=== PATIENT | male | born 1965 | race Caucasian/White ===

== ENCOUNTER 2024-07-20 20:10 | Emergency (ER) | payer SELFPAY ==
[2024-07-20 20:15] VITALS: BP 120/92
[2024-07-20 20:42] LABS: % Basophils 0.4 % (0-2); % Eosinophils 0.1 % (0-6); % Immature Granulocytes 0.2 % (0-0.5); % Lymphocytes 26.4 % (20.5-51.1); % Neutrophils 66.9 % (42.2-75.2); Absolute Lymphocytes 2.2 10^3/uL (1.2-3.4); Absolute Monocytes 0.5 10^3/uL (0.1-0.6); Absolute Neutrophils 5.5 10^3/uL (1.4-6.5); Hematocrit 43.2 % (39.0-52.0); Hemoglobin 15.9 g/dL (13.0-18.0); Mean Corp Hgb Conc. 36.8 g/dL (33.0-37.0); Mean Corpuscular Hgb 32.6 pg (27.0-31.0); Mean Corpuscular Volume 88.7 fL (80.0-94.0); Nucleated Red Blood Cells % 0 % (-); Platelet Count 307 10^3/uL (130-400); Red Blood Cell Count 4.87 10^6/uL (4.70-6.10); Red Cell Dist. Width 13.2 % (11.5-14.5); White Blood Cell Count 8.3 10^3/uL (4.8-10.8)
[2024-07-20 20:46] LABS: Urine Albumin Trace (Neg - Trace); Urine Bilirubin Negative (Negative); Urine Character Clear (Clear); Urine Color Yellow; Urine Glucose Negative (Negative); Urine Ketone 2+ (Negative); Urine Leukocyte Negative (Negative); Urine Nitrite Negative (Negative); Urine Occult Blood Negative (Negative); Urine Specific Gravity 1.015 (<1.030); Urine Urobilinogen Negative (Neg - 1+)
[2024-07-20 20:59] LABS: ALT (SGPT) 27 U/L (0-50); AST (SGOT) 45 U/L (17-59); Albumin 5.2 g/dl (3.5-5.0); Alkaline Phosphatase 110 U/L (38-126); Blood Urea Nitrogen 8 mg/dl (9-20); Calcium 9.8 mg/dl (8.4-10.2); Carbon Dioxide 19 mmol/L (22-30); Chloride 98 mmol/L (98-107); Glucose 136 mg/dl (70-99); Sodium 134 mmol/L (135-145); Total Bilirubin 1.7 mg/dl (0.2-1.3); Total Protein 8.1 g/dl (6.3-8.2); eGFR > 60.00
[2024-07-20 21:00] LABS: Lipase 96 U/L (23-300)
[2024-07-20 21:02] VITALS: BMI 24.3
[2024-07-20] MEDS: NSS 1000 IV ×2 (21:12→23:55)
[2024-07-20] MEDS: ZOFRAN 4 MG IV (21:12)
--- NOTE | 2024-07-20 21:13 | ED.GENMED ---
History of Present Illness
<Dom Banks PA-C - Last Filed: 07/20/24 21:15>
General
Chief Complaint: Abdominal Symptoms
Source: patient
Exam Limitations: none
Time Seen by Provider: 07/20/24 20:53
History of Present Illness
History of Present Illness:
58-year-old male presents with onset of rapid heart rate shortness of breath followed by vomiting and diarrhea. He notes epigastric pain. No recent travel or surgery. No leg swelling or calf pain. Shortness of breath started before the vomiting.
No fevers. He does admit to drinking recently fifth of vodka a day. He has not had as much today.
Past History
<Dom Banks PA-C - Last Filed: 07/20/24 21:15>
Past History
ED Past Medical History: None; Negative HTN, Hypercholesterolemia, IDDM or NIDDM
ED Past Surgical History: Appendectomy
Social History
Tobacco: Former smoker
Personal:
Living: with family
Employment: Not employed
Family History
Family History: Other (Brain tumor); Negative Early CAD
Phy Exam
<Dom Banks PA-C - Last Filed: 07/20/24 21:15>
Physical Exam
Physical Exam:
General: Uncomfortable appearing male no acute respiratory distress
HEENT: Normocephalic atraumatic
Heart: Tachycardic but regular
Lungs: Clear no wheeze
Abdomen is soft nontender nondistended no guarding or rebound
Extremities: No cyanosis
Sepsis
<Dom Banks PA-C - Last Filed: 07/20/24 21:15>
Sepsis Screen
Sepsis Screen: Possible Sepsis
Date: 07/20/24
Time: 21:13
Course
<Dom Banks PA-C - Last Filed: 07/20/24 21:15>
Orders/Labs/Results
Orders:
Orders
07/20/24 20:22
IV Insert/Care/Rem.- Treatment PRN
07/20/24 20:34
Complete Blood Count/With Diff Urgent
Comprehensive Metabolic Panel Urgent
Lipase Urgent
07/20/24 20:35
Urinalysis Reflex To Culture Urgent
Date Specimen was Collected: 07/20/24
Time Specimen was Collected: 20:22
07/20/24 20:39
ECG [Electrocardiogram (*1)] Urgent
Reason for Study: Bradycardia / Tachycardia
Cardiology Consult: Unknown
EKG- Treatment ONCE
07/20/24 21:03
0.9% Sodium Chloride 1000 ml [Nss] 1,000 ml IV BOLUS
Ondansetron Injectable [Zofran] 4 mg IV NOW STA
CR Chest - 2 Views Urgent
Comment:
Reason For Exam: sob
07/20/24 21:09
Troponin I Urgent
Comment: tachycardia
07/20/24 23:43
Famotidine [Pepcid] 20 mg IV NOW STA
Lorazepam [Ativan] 1 mg IV NOW STA
07/20/24 23:51
0.9% Sodium Chloride 1000 ml [Nss] 1,000 ml IV BOLUS
Abnormal Lab Results
07/20/24 07/20/24
20:34 20:35
MCH 32.6 H pg
(27.0-31.0)
Sodium 134 L mmol/L
(135-145)
Carbon Dioxide 19 L mmol/L
(22-30)
BUN 8 L mg/dl
(9-20)
Glucose 136 H mg/dl
(70-99)
Total Bilirubin 1.7 H mg/dl
(0.2-1.3)
Albumin 5.2 H g/dl
(3.5-5.0)
Urine Ketones 2+ A
(Negative)
07/20/24 20:34
07/20/24 20:34
Vital Signs
Initial and Last Documented VS:
Initial Vital Signs
Temp Pulse Resp BP Pulse Ox
97.6 F 139 26 120/92 98
07/20/24 20:15 07/20/24 20:15 07/20/24 20:15 07/20/24 20:15 07/20/24 20:15
Last Documented Vital Signs
Temp Pulse Resp BP Pulse Ox
97.6 F 101 21 123/88 96
07/20/24 20:15 07/21/24 01:45 07/21/24 01:45 07/21/24 01:00 07/21/24 01:45
<Vick Ibarra, - Last Filed: 07/21/24 02:33>
Orders/Labs/Results
Orders:
Orders
07/20/24 20:22
IV Insert/Care/Rem.- Treatment PRN
07/20/24 20:34
Complete Blood Count/With Diff Urgent
Comprehensive Metabolic Panel Urgent
Lipase Urgent
07/20/24 20:35
Urinalysis Reflex To Culture Urgent
Date Specimen was Collected: 07/20/24
Time Specimen was Collected: 20:22
07/20/24 20:39
ECG [Electrocardiogram (*1)] Urgent
Reason for Study: Bradycardia / Tachycardia
Cardiology Consult: Unknown
EKG- Treatment ONCE
07/20/24 21:03
0.9% Sodium Chloride 1000 ml [Nss] 1,000 ml IV BOLUS
Ondansetron Injectable [Zofran] 4 mg IV NOW STA
CR Chest - 2 Views Urgent
Comment:
Reason For Exam: sob
07/20/24 21:09
Troponin I Urgent
Comment: tachycardia
07/20/24 23:43
Famotidine [Pepcid] 20 mg IV NOW STA
Lorazepam [Ativan] 1 mg IV NOW STA
07/20/24 23:51
0.9% Sodium Chloride 1000 ml [Nss] 1,000 ml IV BOLUS
Abnormal Lab Results
07/20/24 07/20/24
20:34 20:35
MCH 32.6 H pg
(27.0-31.0)
Sodium 134 L mmol/L
(135-145)
Carbon Dioxide 19 L mmol/L
(22-30)
BUN 8 L mg/dl
(9-20)
Glucose 136 H mg/dl
(70-99)
Total Bilirubin 1.7 H mg/dl
(0.2-1.3)
Albumin 5.2 H g/dl
(3.5-5.0)
Urine Ketones 2+ A
(Negative)
07/20/24 20:34
07/20/24 20:34
Vital Signs
Initial and Last Documented VS:
Initial Vital Signs
Temp Pulse Resp BP Pulse Ox
97.6 F 139 26 120/92 98
07/20/24 20:15 07/20/24 20:15 07/20/24 20:15 07/20/24 20:15 07/20/24 20:15
Last Documented Vital Signs
Temp Pulse Resp BP Pulse Ox
97.6 F 101 21 123/88 96
07/20/24 20:15 07/21/24 01:45 07/21/24 01:45 07/21/24 01:00 07/21/24 01:45
Tashalt;Dom Banks PA-C - Last Filed: 07/20/24 21:15>
MDM/Problems Addressed
Differential Diagnosis Includes:
Shortness of breath with vomiting and diarrhea. Question electrolyte abnormality. He also has epigastric pain but is nontender to exam. Gastritis versus pancreatitis
Also consider alcohol withdrawal given tachycardia and recent alcohol use. No PE risk factors.
Labs ordered including troponin lipase. Chest x-ray pending fluids and Zofran ordered
ED Attending Note
<Dom Banks PA-C - Last Filed: 07/20/24 21:15>
-
Portions of this chart may have been created with voice recognition software.� Occasional wrong word or��sound alike� substitutions may have occurred due to the inherent limitations of voice recognition software.
<Vick Ibarra DO - Last Filed: 07/21/24 02:33>
ED Attending Note
Patient seen and examined by attending physician: Yes
I performed the substantive portion of visit, reviewed & personally made and approve the management plan that is documented in note by myself or ROMEL.: Yes
ED Attending Note:
History as above. On reevaluation the patient feels much better. States he had vomiting and diarrhea and now feels much improved after IV fluids. Labs grossly unremarkable. Heart rate much improved. Okay for discharge and outpatient follow-up
Discharge Plan
Departure
Patient Disposition: Home (Routine Discharge)
Date of Disposition: 07/21/24
Time of Disposition: 01:54
Patient with high blood pressure during this ER visit?: No
Discharge Problem:
Vomiting, Diarrhea
Instructions: Diarrhea in teens and adults, Clear Liquid Diet, Nausea and Vomiting, Adult (DC)
Prescriptions:
No Action
ibuprofen 200 mg Capsule
800 mg PO Q6H PRN (Reason: groin pain)
acetaminophen [Tylenol Extra Strength] 500 mg tablet
1,000 mg PO Q6HPRN PRN (Reason: mild pain) Qty: 1 0RF
polyethylene glycol 3350 [Miralax] 17 gram/dose powder
4 g PO DAILY PRN (Reason: Constipation) Qty: 119 0RF
Rx Instructions:
start a laxative such as MIRALAX on day 2 after surgery if no bowel movement yet as long as no nausea/vomiting and passing gas
oxycodone 5 mg tablet
5 mg PO Q4HPRN PRN (Reason: breakthrough/severe pain) Qty: 15 0RF
Referrals:
Sandro Howard, [Family Provider] -
Activity Restrictions/Additional Instructions:
Please drink plenty fluids and see your doctor in follow-up in next 3 to 5 days for any symptoms persist. Advance diet slowly as discussed. Return immediately for abdominal pain, fevers, intractable vomiting, blood in stool or any other concerns
Interventions
Interventions:
*Risk Screen - Suicide Last Done: 07/20/24 20:15
*General Assessment Last Done: 07/20/24 20:15
*Neglect/Abuse Screening Last Done: 07/20/24 20:15
ED- Fall Risk Assessment Last Done: 07/20/24 20:15
*ED COVID-19 Vaccine History Last Done: 07/20/24 20:15
*Nursing Disposition Last Done: 07/21/24 01:46
PX-Stxajm-Mebifkkdgj Assessment Last Done: 07/20/24 21:01
ED- Cardiac Assessment Last Done: 07/20/24 21:01
ED- Pulmonary Assessment Last Done: 07/20/24 21:01
Discharge Date and Time
Discharge Date/Time: 07/21/24 02:05
Print Language: GEORGIAN
[2024-07-20 21:14] VITALS: BP 125/91
[2024-07-20 21:38] LABS: Troponin I < 0.012 ng/ml
[2024-07-20] MEDS: PEPCID 20 MG IV (23:52)
[2024-07-20 23:53] VITALS: BP 117/102
[2024-07-20] MEDS: ATIVAN 1 MG IV (23:53)
[2024-07-20 23:57] VITALS: BP 131/91
[2024-07-21] VITALS: BP 142/96
[2024-07-21 01:00] VITALS: BP 123/88
== END 2024-07-21 02:05 | disposition home or self-care (01) ==
LOC: EMR 20:10
PROVIDERS: EMERGENCY PHYSICIAN Emergency Medicine; FAMILY PHYSICIAN Family Medicine
DX: R19.7 Diarrhea, unspecified (principal); R11.2 Nausea with vomiting, unspecified; R06.02 Shortness of breath; R10.13 Epigastric pain; R00.0 Tachycardia, unspecified; F10.90 Alcohol use, unspecified, uncomplicated; Z87.891 Personal history of nicotine dependence
CPT/HCPCS: 99284; 96374; 96375 ×2; 96361 ×2; 71046; 80053; 81003; 83690; 84484; 85025; 93005

== ENCOUNTER 2024-09-17 14:51 | Emergency (ER) | payer SELFPAY ==
[2024-09-17 14:54] VITALS: BP 131/97
[2024-09-17 15:52] VITALS: BP 132/97
[2024-09-17 16:00] VITALS: BP 123/99
[2024-09-17 16:02] VITALS: BMI 23.7
[2024-09-17 16:07] LABS: % Basophils 0.4 % (0-2); % Immature Granulocytes 0.5 % (0-0.5); % Lymphocytes 13.7 % (20.5-51.1); % Monocytes 5.9 % (1.7-9.3); % Neutrophils 79.5 % (42.2-75.2); Absolute Lymphocytes 1.1 10^3/uL (1.2-3.4); Absolute Monocytes 0.5 10^3/uL (0.1-0.6); Absolute Neutrophils 6.4 10^3/uL (1.4-6.5); Hematocrit 42.1 % (39.0-52.0); Hemoglobin 14.9 g/dL (13.0-18.0); Mean Corp Hgb Conc. 35.4 g/dL (33.0-37.0); Mean Corpuscular Hgb 32.9 pg (27.0-31.0); Mean Corpuscular Volume 92.9 fL (80.0-94.0); Mean Platelet Volume 9.8 fL (7.4-10.4); Nucleated Red Blood Cells % 0 % (-); Platelet Count 152 10^3/uL (130-400); Red Blood Cell Count 4.53 10^6/uL (4.70-6.10); Red Cell Dist. Width 13.9 % (11.5-14.5)
[2024-09-17 16:21] LABS: AST (SGOT) 45 U/L (17-59); Albumin 4.9 g/dl (3.5-5.0); Alkaline Phosphatase 115 U/L (38-126); Blood Urea Nitrogen 9 mg/dl (9-20); Calcium 9.3 mg/dl (8.4-10.2); Carbon Dioxide 19 mmol/L (22-30); Chloride 95 mmol/L (98-107); Estimated Creatinine Clearance 114 ml/min; Glucose 164 mg/dl (70-99); Potassium 3.4 mmol/L (3.5-5.1); Sodium 134 mmol/L (135-145); Total Bilirubin 3.6 mg/dl (0.2-1.3); Total Protein 7.7 g/dl (6.3-8.2); eGFR > 60.00
[2024-09-17 16:22] LABS: Alcohol None Detected
[2024-09-17 16:30] LABS: ALT (SGPT) 31 U/L (0-50)
[2024-09-17] MEDS: ATIVAN 2 MG IV (16:48)
[2024-09-17] MEDS: NSS 1000 IV (16:49)
[2024-09-17] MEDS: ZOFRAN 4 MG IV (16:49)
[2024-09-17 17:00] VITALS: BP 133/95
--- NOTE | 2024-09-17 18:27 | ED.GENMED ---
History of Present Illness
General
Chief Complaint: Withdrawal Symptoms
Time Seen by Provider: 09/17/24 15:53
History of Present Illness
History of Present Illness:
58-year-old male with history of alcohol abuse presenting to the emergency department for concern of alcohol withdrawal. Patient reports his last use was last evening, has been trying to detox. Notes tremulousness and nausea and vomiting. Denies
any hallucinations. Reports generalized dizziness and lightheadedness. Denies chest pain or difficulty breathing. Denies abdominal pain. Denies ever known in the past. Denies additional acute medical complaints
Past History
Past History
ED Past Medical History: None; Negative HTN, Hypercholesterolemia, IDDM or NIDDM
ED Past Surgical History: Appendectomy
Social History
Tobacco: Former smoker
Personal:
Living: with family
Employment: Not employed
Family History
Family History: Other (Brain tumor); Negative Early CAD
Phy Exam
Physical Exam
Physical Exam:
General: no clinical signs of dehydration, nontoxic and in no acute distress
HEENT: protecting airway
Neck: appears supple
CV: Normal heart rate, regular rhythm, no evidence of cyanosis
Resp: No accessory muscle use, no increased work of breathing, lungs clear to auscultation bilaterally
Abd: Soft and non-distended, no tenderness to palpation
Extremities: No deformities, no swelling, no erythema, pulses and sensation intact
Neuro: alert, no focal neurologic deficit. Mild tremulousness
: deferred
Rectal: deferred
Psych: Normal affect
Skin: Intact
Scores
Withdrawal Assessment of Alcohol
Withdrawal Assessment Completed?: Yes
Nausea and Vomiting: Intermittent nausea with dry heaves
Tactile Disturbances: None
Tremor: Moderate, with patient's arms extended
Auditory Disturbances: Not present
Paroxysmal Sweats: No sweat visible
Visual Disturbances: Not present
Anxiety: No anxiety, at ease
Headache, Fullness in Head: Not present
Agitation: Normal activity
Orientation and clouding of sensorium: Oriented and can do serial additions
Total CIWA Score: 8
Alcohol Withdrawal Medication Recommendation: Equal to MSAS Score 5-7. Lorazepam 1mg IV or PO NOW & re-assess q2hrs
Course
Orders/Labs/Results
Orders:
Orders
09/17/24 14:56
EKG [Electrocardiogram (*1)] Urgent
Reason for Study: Tachycardia
EKG- Treatment ONCE
09/17/24 16:02
Alcohol Urgent
Complete Blood Count/With Diff Urgent
Comprehensive Metabolic Panel Urgent
09/17/24 16:42
0.9% Sodium Chloride 1000 ml [Nss] 1,000 ml IV BOLUS
Lorazepam [Ativan] 2 mg IV NOW STA
Ondansetron Injectable [Zofran] 4 mg IV NOW STA
Abnormal Lab Results
09/17/24
16:02
RBC 4.53 L 10^6/uL
(4.70-6.10)
MCH 32.9 H pg
(27.0-31.0)
Absolute Lymphs (auto) 1.1 L 10^3/uL
(1.2-3.4)
Neutrophils % 79.5 H %
(42.2-75.2)
Lymphocytes % 13.7 L %
(20.5-51.1)
Sodium 134 L mmol/L
(135-145)
Potassium 3.4 L mmol/L
(3.5-5.1)
Chloride 95 L mmol/L
(98-107)
Carbon Dioxide 19 L mmol/L
(22-30)
Glucose 164 H mg/dl
(70-99)
Total Bilirubin 3.6 H mg/dl
(0.2-1.3)
09/17/24 16:02
09/17/24 16:02
Vital Signs
Initial and Last Documented VS:
Initial Vital Signs
Temp Pulse Resp BP Pulse Ox
97.5 F 155 26 131/97 98
09/17/24 14:54 09/17/24 14:54 09/17/24 14:54 09/17/24 14:54 09/17/24 14:54
Last Documented Vital Signs
Temp Pulse Resp BP Pulse Ox
97.5 F 108 12 133/95 96
09/17/24 14:54 09/17/24 17:30 09/17/24 17:30 09/17/24 17:00 09/17/24 17:45
MDM/Problems Addressed
MDM/Problems Addressed:
58-year-old male with history of alcohol abuse presenting for concern of alcohol withdrawal. Vital signs on arrival are significant for tachycardia.
On exam patient is resting comfortably, no acute distress or discomfort. He does have mild tremulousness, had an episode of vomiting upon arrival. CIWA score is 8. Do suspect mild acute withdrawal. Will screen with laboratory analysis and treat
patient therapeutically with IV fluids and Zofran as well as Ativan. Patient currently denying any hallucinations or tactile disturbances. Will consult with [facility] for detox options, however patient notes that he does not have insurance and is not
currently interested in inpatient rehab
18:20 - Labs are unremarkable. Patient reports that he is feeling better. Heart rate has improved. Feel stable for discharge. Prescription provided for gabapentin taper. Patient was given resources for outpatient follow-up. Return precautions
patient verbalized understanding
*Critical Care Note
Total Time (30-74mins, 75-104mins- exclusive of procedures): Not Applicable
ED Attending Note
-
Portions of this chart may have been created with voice recognition software.� Occasional wrong word or��sound alike� substitutions may have occurred due to the inherent limitations of voice recognition software.
Discharge Plan
Departure
Patient Disposition: Home (Routine Discharge)
Date of Disposition: 09/17/24
Time of Disposition: 18:25
Patient with high blood pressure during this ER visit?: No
Condition: Good
Discharge Problem:
Alcohol abuse with withdrawal
Instructions: Alcohol Withdrawal (DC)
Prescriptions:
New
gabapentin 300 mg capsule
300 mg PO DAILY 4 Days Qty: 10 0RF
Rx Instructions:
Day 1: 300 mg q6 hr
Day 2: 300 mg q 8hr
Day 3: 300 mg q12 hr
Day 4: 300 mg at night
No Action
ibuprofen 200 mg Capsule
800 mg PO Q6H PRN (Reason: groin pain)
acetaminophen [Tylenol Extra Strength] 500 mg tablet
1,000 mg PO Q6HPRN PRN (Reason: mild pain) Qty: 1 0RF
polyethylene glycol 3350 [Miralax] 17 gram/dose powder
4 g PO DAILY PRN (Reason: Constipation) Qty: 119 0RF
Rx Instructions:
start a laxative such as MIRALAX on day 2 after surgery if no bowel movement yet as long as no nausea/vomiting and passing gas
oxycodone 5 mg tablet
5 mg PO Q4HPRN PRN (Reason: breakthrough/severe pain) Qty: 15 0RF
Referrals:
Sanrdo Howard DO [Family Provider] -
Activity Restrictions/Additional Instructions:
You were seen in the emergency department for alcohol withdrawal
You were found to normal blood work. You were seen by credit risk specialist, given outpatient resources. You were also prescribed a gabapentin taper to help with your withdrawal symptoms
Please follow-up closely with your primary care physician.
Return to the emergency department for any worsening of your symptoms, or any development of chest pain, difficulty breathing, abdominal pain with persistent vomiting and inability to tolerate food or liquid by mouth (concern for dehydration),
weakness, headache or confusion, fever greater than 100.4, or any additional symptoms that are concerning to you.
Thank you for choosing [facility].
Interventions
Interventions:
*Risk Screen - Suicide Last Done: 09/17/24 15:57
*General Assessment Last Done: 09/17/24 15:58
*Neglect/Abuse Screening Last Done: 09/17/24 15:57
ED- Cardiac Assessment Last Done: 09/17/24 15:57
ED- Neurological Assessment Last Done: 09/17/24 15:57
ED-Psychological Assessment Last Done: 09/17/24 15:57
Discharge Date and Time
Print Language: ALBANIAN
== END 2024-09-17 18:32 | disposition home or self-care (01) ==
LOC: EMR 14:51
PROVIDERS: EMERGENCY PHYSICIAN Student in an Organized Health Care Education/Training Program; FAMILY PHYSICIAN Family Medicine
DX: F10.139 Alcohol abuse with withdrawal, unspecified (principal); R11.2 Nausea with vomiting, unspecified; Z87.891 Personal history of nicotine dependence
CPT/HCPCS: 96374; 96375; 96361; 99284; 80053; 82077; 85025; 93005

== ENCOUNTER 2024-10-30 08:02 | Inpatient (IN) | payer SELFPAY ==
[2024-10-29] VITALS (7 sets, daily range): BP systolic 122–137; BP diastolic 85–96; BMI 24.3
[2024-10-29 17:09] LABS: % Basophils 0.4 % (0-2); % Eosinophils 0.1 % (0-6); % Immature Granulocytes 0.4 % (0-0.5); % Lymphocytes 10.7 % (20.5-51.1); % Monocytes 4.7 % (1.7-9.3); % Neutrophils 83.7 % (42.2-75.2); Absolute Basophils 0.1 10^3/uL (0-0.2); Absolute Immature Granulocytes 0.1 10^3/uL (0-0.05); Absolute Lymphocytes 1.5 10^3/uL (1.2-3.4); Absolute Monocytes 0.6 10^3/uL (0.1-0.6); Absolute Neutrophils 11.5 10^3/uL (1.4-6.5); Hematocrit 40.2 % (39.0-52.0); Hemoglobin 14.6 g/dL (13.0-18.0); Mean Corp Hgb Conc. 36.3 g/dL (33.0-37.0); Mean Corpuscular Hgb 32.7 pg (27.0-31.0); Mean Corpuscular Volume 89.9 fL (80.0-94.0); Mean Platelet Volume 9.6 fL (7.4-10.4); Nucleated Red Blood Cells % 0 % (-); Platelet Count 214 10^3/uL (130-400); Red Blood Cell Count 4.47 10^6/uL (4.70-6.10); Red Cell Dist. Width 12.6 % (11.5-14.5); White Blood Cell Count 13.7 10^3/uL (4.8-10.8)
[2024-10-29 17:23] LABS: AST (SGOT) 41 U/L (17-59); Albumin 4.9 g/dl (3.5-5.0); Alkaline Phosphatase 105 U/L (38-126); Blood Urea Nitrogen 13 mg/dl (9-20); Calcium 9.6 mg/dl (8.4-10.2); Carbon Dioxide 23 mmol/L (22-30); Chloride 100 mmol/L (98-107); Estimated Creatinine Clearance 99 ml/min; Glucose 157 mg/dl (70-99); Magnesium 1.4 mg/dl (1.6-2.3); Potassium 3.6 mmol/L (3.5-5.1); Sodium 139 mmol/L (135-145); Total Bilirubin 2.9 mg/dl (0.2-1.3); Total Protein 7.8 g/dl (6.3-8.2); eGFR > 60.00
[2024-10-29 17:24] LABS: Alcohol None Detected
[2024-10-29 17:46] LABS: ALT (SGPT) 31 U/L (0-50)
--- NOTE | 2024-10-29 19:00 | EDRN ---
still waiting for the pt to be seen by the provider
--- NOTE | 2024-10-29 20:06 | ED.GENMED ---
History of Present Illness
General
Chief Complaint: Chest Pain
Source: patient
Exam Limitations: none
Time Seen by Provider: 10/29/24 19:44
Nursing documentation reviewed up to this point in time: agreed with
History of Present Illness
History of Present Illness:
The patient is a pleasant 59-year-old man with a past medical history of chronic alcohol use who reports that he was taking a walk at around 3:30 PM today and developed left-sided chest pain with tingling down his left arm. Patient also reports
associated shortness of breath. He denies any radiation of pain into his back. He denies sweating, and nausea. Patient reports that he has not drank alcohol since last night and he feels tremorous and anxious. He reports he has a history of
alcohol withdrawal and DTs. Patient denies any history of cardiac disease. He also smokes cigarettes. He denies leg pain and leg swelling. He denies a history of PE and DVT.
Past History
Past History
ED Past Medical History: Other (Chronic alcoholic)
ED Past Surgical History: Appendectomy
Social History
Tobacco: Smoker
Alcohol: Binge drinker
Drug: None
Personal:
Living: with family
Employment: Not employed
Family History
Family History: Other (Brain tumor); Negative Early CAD
Review of Systems
Review of Systems
Allergies reviewed?: Yes
All Other Systems: ROS reviewed and negative except as documented in HPI and ROS
Constitutional: Reports no symptoms
EENT: Reports no symptoms
Respiratory: Reports trouble breathing
Cardiac: Reports chest pain and palpitations
ABD/GI: Reports no symptoms
: Reports no symptoms
Musculoskeletal: Reports no symptoms
Skin: Reports no symptoms
Neurological: Reports no symptoms
Endocrine: Reports no symptoms
Hematologic/Lymphatic: Reports no symptoms
Psychiatric: Reports anxiety
Phy Exam
Physical Exam
Physical Exam:
Physical Exam
General: Patient appears anxious and slightly tremorous but cooperative
Neck: supple. no meningeal signs. normal psoterior pharynx
Heart: Tachycardic
Lungs: no acute respiratory distress. clear bilaterally
Abdomen: normal bowel sounds. not tender. no CVAT, no pulsatile mass
Neuro: alert and oriented. no focal neurological deficits
Skin: no rash
Psychiatric: well kept. interactive and cooperative
Extremities: no edema. no calf tenderness. negative homans. good distal pulses
Scores
Heart Score for Chest Pain Patients
STEMI patient?: Not applicable
Withdrawal Assessment of Alcohol
Withdrawal Assessment Completed?: Yes
Nausea and Vomiting: Mild nausea with no vomiting
Tactile Disturbances: Very mild itching, pins and needles, burning or numbness
Tremor: Moderate, with patient's arms extended
Auditory Disturbances: Not present
Paroxysmal Sweats: No sweat visible
Visual Disturbances: Not present
Anxiety: Mild anxiety
Headache, Fullness in Head: Very mild
Agitation: Moderately fidgety and restless
Orientation and clouding of sensorium: Oriented and can do serial additions
Total CIWA Score: 12
Alcohol Withdrawal Medication Recommendation: Equal to MSAS Score 5-7. Lorazepam 1mg IV or PO NOW & re-assess q2hrs
Course
Orders/Labs/Results
Orders:
Orders
10/29/24 16:30
Electrocardiogram (*1) Urgent
Reason for Study: Chest Pain
EKG- Treatment ONCE
10/29/24 17:04
Alcohol Urgent
Complete Blood Count/With Diff Urgent
Comprehensive Metabolic Panel Urgent
Magnesium Urgent
10/29/24 20:06
0.9% Sodium Chloride 1000 ml [Nss] 1,000 ml IV BOLUS
Lorazepam [Ativan] 1 mg IV NOW STA
10/29/24 20:08
CR Chest - 2 Views Urgent
Comment:
Reason For Exam: CP
10/29/24 20:33
Troponin I Urgent
10/29/24 21:13
Add On- LAB Urgent
Tests Added?: magnesium
10/29/24 22:30
0.9% Sodium Chloride 1000 ml [Nss] 1,000 ml Mvi, Adult [Multivitamin] 10 ml Thiamine Injection 100 mg IV Wide Open mls/hr
Abnormal Lab Results
10/29/24
17:04
WBC 13.7 H 10^3/uL
(4.8-10.8)
RBC 4.47 L 10^6/uL
(4.70-6.10)
MCH 32.7 H pg
(27.0-31.0)
Abs Immat Gran (auto) 0.1 H 10^3/uL
(0-0.05)
Absolute Neuts (auto) 11.5 H 10^3/uL
(1.4-6.5)
Neutrophils % 83.7 H %
(42.2-75.2)
Lymphocytes % 10.7 L %
(20.5-51.1)
Glucose 157 H mg/dl
(70-99)
Magnesium 1.4 L mg/dl
(1.6-2.3)
Total Bilirubin 2.9 H mg/dl
(0.2-1.3)
10/29/24 17:04
10/29/24 17:04
Vital Signs
Initial and Last Documented VS:
Initial Vital Signs
Temp Pulse Resp BP Pulse Ox
98.6 F 151 18 122/92 97
10/29/24 16:37 10/29/24 16:37 10/29/24 16:37 10/29/24 16:37 10/29/24 16:37
Last Documented Vital Signs
Temp Pulse Resp BP Pulse Ox
97.6 F 107 18 134/95 99
10/29/24 17:06 10/29/24 20:15 10/29/24 20:15 10/29/24 19:00 10/29/24 20:26
MDM/Problems Addressed
Differential Diagnosis Includes:
Acute coronary syndrome, PE, aortic dissection, alcohol withdrawal
MDM/Problems Addressed:
Patient presents with acute chest pain, shortness of breath and palpitations
Chronic conditions affecting care:
Chronic alcohol use
Acute Exacerbation and/or Progression of Chronic Illness:
Patient may have acute exacerbation of alcohol withdrawal
*Radiology
Radiology exam reviewed: preliminary read by ED provider (Chest x-ray read by me. No acute disease) and radiology read reviewed
*Pulse Oximetry
Patient hypoxic: no
*EKG
Interpreted by ED Provider?: Yes
Interpretation: abnormal
Comparison EKG: no comparison EKG present
Rate: tachycardiac
Rhythm: sinus
[place]: normal axis
Interval: normal interval
QRS Pattern: normal QRS
Ischemia: non-specific ST changes
*[employer] Interpretation
Rate: tachycardiac
Interpretation: normal
Rhythm: sinus
*Critical Care Note
Total Time (30-74mins, 75-104mins- exclusive of procedures): Not Applicable
Data Reviewed
Review of Other/Old Records Reveals: Discharge Summary (Discharge admission reviewed from 2022 when patient was admitted for incarcerated hernia)
Source: patient
ED Attending Note
-
Portions of this chart may have been created with voice recognition software.� Occasional wrong word or��sound alike� substitutions may have occurred due to the inherent limitations of voice recognition software.
Discharge Plan
Departure
Patient Disposition: Admit
Date of Disposition: 10/29/24
Time of Disposition: 21:11
Admit to: Telemetry
Presentation/result/management discussed w/ accepting MD/DO: Hospitalist
Patient with high blood pressure during this ER visit?: Yes
Condition: Fair
Covid-19: Not Applicable
Discharge Problem:
Chest pain in adult, Alcohol withdrawal
Prescriptions:
No Action
acetaminophen [Tylenol Extra Strength] 500 mg tablet
1,000 mg PO Q6HPRN PRN (Reason: mild pain) Qty: 1 0RF
Referrals:
Sandro Howard, DO [Family Provider] -
Interventions
Interventions:
*Risk Screen - Suicide Last Done: 10/29/24 16:39
*General Assessment Last Done: 10/29/24 16:39
*Neglect/Abuse Screening Last Done: 10/29/24 16:39
*ED- Fall Risk Assessment Last Done: 10/29/24 17:06
*ED COVID-19 Vaccine History Last Done: 10/29/24 16:39
ED- Cardiac Assessment Last Done: 10/29/24 20:26
Discharge Date and Time
Print Language: KHMER
[2024-10-29] MEDS: NSS 1000 IV (20:13)
[2024-10-29] MEDS: ATIVAN 1 MG IV (20:14)
[2024-10-29 21:07] LABS: Troponin I < 0.012 ng/ml
[2024-10-29] MEDS: MULTIVITAMIN 1011 ML IV (22:21)
[2024-10-29] MEDS: MULTIVITAMIN 1011 MG IV (22:21)
--- NOTE | 2024-10-29 22:34 | HPS.HSE ---
Family Physician
-
Family Physician: Sandro Howard
Chief Complaint
-
tremors
History of Present Illness
Patient is a 59-year-old male with past medical history significant for alcohol dependency presented to [facility] ED for evaluation of not feeling well. He reports sleeping later than normal, got up and was walking around outside where he
states he did not feel well. He reports tremors and numbness feeling in left arm and hand. Mild left-sided chest discomfort, mild nausea and shortness of breath. His neighbor asked if he was ok and if he wanted to go to hospital. Patient had
neighbor walk him here for evaluation. Patient reports drinking approximately 10 ounces of vodka per day and would like to stop. He does want to quit but does not want to stay longer than 24-hours as he has no health insurance. He is open to
speaking with case management on options to have hospitalization covered.
Medical History
Past Medical History
Past Medical History: Reports Other
Additional Past Medical History:
anxiety
ETOH dependency
Past Surgical History: Reports Other
Additional Past Surgical History:
Appendectomy
open Right inguinal Hernia repair
laparoscopic reduction/TEP repair left inguinal hernia with mesh ([facility]) 06/09/2023
Social History
Tobacco: Smoker (0.5 pack per day for 32 years, approximately 16 pack year history )
Alcohol: Daily (approximately 10 ounces of vodka )
Drug: Marijuana (will smoke or use edibles occasionally )
Personal:
Living: With Family
Employment: Employed
Family History
Family History: Other (Father: brain tumor; mother: COPD)
Allergies / Home Medications
Allergies reflects when Allergies were last updated in [employer].
Home Medications with original date entered in [employer]
Allergy/Medication List:
Allergies
Allergy/AdvReac Type Severity Reaction Status Date / Time
No Known Allergies Allergy Verified 09/17/24 15:13
Home Medications
acetaminophen 500 mg tablet (Tylenol Extra Strength) 1,000 mg (2 x 500 mg) PO Q6HPRN PRN mild pain #1 tab 06/10/23
Review of Systems
-
History Source: Patient
Respiratory: Reports Trouble Breathing (exertional shortness of breath )
Abdomen/GI: Reports Nausea
Neurological: Reports Dizzy, Weakness, Numbness and Other (tremors )
Physical Exam
Vital Signs
Vital Signs
Temp Pulse Resp BP Pulse Ox
97.6 F 107 18 134/95 99
10/29/24 17:06 10/29/24 20:15 10/29/24 20:15 10/29/24 19:00 10/29/24 20:26
Physical Exam
General: Well Developed, Well Nourished, No Apparent Distress, Comfortable and Conversant
HEENT: NormoCephalic, Moist mucous membranes, Atraumatic, [place] Conjunctivae, Nose Appears Normal and Ears Appear Normal
Respiratory: Clear and Non Labored Respirations
Cardiac: S1/S2, Regular Rhythm and Tachycardia
GI: Soft, Non Tender, Non Distended and Normal Bowel Sounds; No Organomegaly
Rectal: Deferred by Provider
Genito-urinary: Deferred by me
Musculoskeletal: No Clubbing, No Cyanosis and No Edema
Skin: IV/Catheter Site
Neuro: Awake, Alert, AO x 3 and Nonfocal/grossly intact
Psych: Calm and Intact Judgment/Insight
Laboratory Results
-
10/29/24 17:04
10/29/24 17:04
Laboratory Results
Total Bilirubin 2.9 mg/dl (0.2-1.3) H 10/29/24 17:04
AST 41 U/L (17-59) 10/29/24 17:04
ALT 31 U/L (0-50) 10/29/24 17:04
Alkaline Phosphatase 105 U/L (38-126) 10/29/24 17:04
Troponin I < 0.012 ng/ml 10/29/24 20:33
Data Reviewed
-
Diagnostic Radiology: Report Reviewed by me (CXR: No acute cardiopulmonary abnormality.)
Medical Tests (Nuc Med, Echo, EKG etc): Report Reviewed by me (EKG: SINUS TACHYCARDIA NONSPECIFIC ST AND T WAVE ABNORMALITY)
Lab Data: Labs Reviewed by me (WBC 13.7, Neut 83.7, mag 1.4, tot bili 2.9)
Impression/Plan
-
IMPRESSION/PLAN:
#ETOH withdraw
#ETOH dependency
drinks approximately 10 ounces vodka per day
would like to quit
concerns of how to cover cost with no health insurance
- Admit to telemetry
- MSAS q1h with lorazepam
- Psych consult
- Case management consult
#anxiety
Code status: Full code
DVT Prophylaxis: SCDs
--- NOTE | 2024-10-29 22:48 | W.PN.UPDATE ---
Update Note
Progress Note Update
Patient seen in conjunction with therapy. I agree with the findings and physical. I concur with assessment plan.
This is a 59-year-old who has past medical history only significant for acute appendicitis and hernia repairs comes to the emergency department with episode of tremors and palpitations that started at around 3 PM. Patient reports history of alcohol
abuse and multiple ED visits for intoxication and withdrawal symptoms in the past. He reports that his last drink was about 24 hours ago. He drinks approximately 4 small bottles of liquor daily and has been doing so for several weeks without any
interruption. He overslept this morning and when he arose at 3 PM to try to walk he started noticing the shakes. He also had flutters in his chest and arm tingling. He decided to come to the emergency department. Found to be tachycardic on
arrival in ED. He denies any hallucinations at this time. He denies any confusion. Patient reports that he occasionally does marijuana denies any other recreational drug use. He reports that he is willing to undergo rehab at this time.
Currently denies nausea or vomiting.
In the emergency department he was afebrile, he was normotensive with a blood pressure of 134/95 and was tachycardic to 107 satting 100% on room air. ECG shows sinus tach at a rate of [address] or T wave changes. Troponin was
negative. CBC was unremarkable except for some leukocytosis 13.7, electrolytes BUN and creatinine were normal. Total bilirubin was elevated at 2.9 AST and ALT were normal. Chest x-ray was clear.
On my examination he was alert and oriented x 3, he was nontachycardic and has imperceptible tremulousness. He is not diaphoretic at this time. He does appear agitated. CIWA = 5. PAWS = 5. currently well controlled by high risk for severe
withdrawal. In the 24 - 72 hour window for hallucinosis and seizure and DT. ETOH is negative currently
- admit to telemetry
- start lorazepam msas protocol high risk, will hold off on phenobarbital
- s/p IV fluids, will monitor for now on reglar diet
- thiamine/folate continued per protocol
- Case management
-psych consult
- DVT PPX - SCD
[2024-10-30] VITALS (8 sets, daily range): BP systolic 125–149; BP diastolic 80–95; BMI 23.6
[2024-10-30] MEDS: FLUSH (NSS) 2 FLUSH IV (01:24)
[2024-10-30] MEDS: THIAMINE INJECTION 200 MG IV ×4 (01:25→23:07)
[2024-10-30] MEDS: ATIVAN 1 MG PO (01:48)
--- NOTE | 2024-10-30 02:00 | PTCARENOTE ---
New admit to 2S from ER, able to walk to room bed with steady gait. Pt. in NAD, even and unlabored breathing on RA, VSS, noticeable upper extremity tremor, flushed skin noted. MSAS score 5 upon admission, will give PRN Ativan as prescribed.
Questions/concerns addressed, plan of care reviewed, oriented to room and unit policies, safety maintained.
[2024-10-30 07:04] LABS: GGTP 36 U/L (15-73); Phosphorus 3.2 mg/dl (2.5-4.5)
[2024-10-30 07:07] LABS: INR 1.04; PT 13.9 Sec (11.4-14.6)
[2024-10-30 07:08] LABS: APTT 26.9 Sec (23.4-35.0)
[2024-10-30 07:11] LABS: B-Hydroxybutyrate 0.18 mmol/L (0.02-0.27)
[2024-10-30] MEDS: FLUSH (NSS) 1 FLUSH IV (08:47)
[2024-10-30] MEDS: FOLVITE 1 MG PO (08:47)
--- NOTE | 2024-10-30 09:53 | W.PN.HOSP.TC ---
Today's Communication/Plan
-
see plan
Assessment / Plan
Assessment / Plan
Gen: NAD, AAOx3.
Eyes: EOMI, PERRLA, no scleral icterus.
Neck: supple.
CV: RRR, +S1/S2, no m/r/g.
Resp: CTAB, no rales, wheezes, or rhonchi.
Abd: +BS, soft, NT, ND
Skin: No rashes.
Neuro: CN 2-12 intact, non-focal.
Psych: Normal mood and affect.
CXR: No acute cardiopulmonary abnormality.
Alcohol abuse disorder:
-drinks approximately 10 ounces vodka per day, last drink 10/28/24
-cont MSAS protocol (thiamine/folate/PRN ativan)
-no need for psych c/s
-Currently without any evidence of alcohol withdrawal
Chest pain and shortness of breath:
-Patient states this is what brought him to the hospital
-Trop < 0.012 on admission, repeat now
-ECG (read by me): sinus tachy @ 118, nl axis, intervals, no acute ST/TW changes
-check CTA chest
Hypomagnesemia:
-4g IV Mg
Leukocytosis, likely reactive
FULL/SCDs
Anticipated Discharge: Within 24 hours
Subjective/Interval History
-
Date of Service: October 30, 2024
Pt denies AH/VH/diaphoresis/tremors. States he presented due to sharp left-sided chest pain and shortness of breath as well as tingling in his left arm.
Objective Data
-
Labs:
Laboratory Results
10/30/24 10/30/24
05:30 06:50
PT Cancelled 13.9
INR Cancelled 1.04
APTT Cancelled 26.9
Vital Signs:
Vital Signs
Temp Pulse Resp BP Pulse Ox
98.7 F 90 16 135/86 95
10/30/24 07:15 10/30/24 07:15 10/30/24 07:15 10/30/24 07:15 10/30/24 09:30
I&O
10/29/24 10/30/24 10/31/24
06:59 06:59 06:59
Intake Total 120 / 120
Balance 120 / 120
[2024-10-30] MEDS: MAGNESIUM SULFATE 100 IV (10:11)
[2024-10-30 11:46] LABS: Troponin I < 0.012 ng/ml
--- NOTE | 2024-10-30 12:00 | CM ---
Initial assessment completed
Pt lives with his and son in a 2 story town home; [address], 12 steps to 2nd [address]
Employed, independent, drives
DME - none
SNF/HH - no past hx
Has ride at d/c
PCP - Sandro Howard
Pharm - [facility]
Given info to [employer] for resources - has internet access
CM consult - inpatient rehab
Discussed with pt - requesting services. Discussed [facility] - requesting referral
Spoke with Jimi at [facility] - reports he can see pt today at bedside
Plan - TBD; anticipate home with [facility] resources vs inpatient alcohol rehab
[2024-10-30 13:03] LABS: Urine Albumin 2+ (Neg - Trace); Urine Bilirubin Negative (Negative); Urine Character Clear (Clear); Urine Color Yellow; Urine Glucose Negative (Negative); Urine Ketone 1+ (Negative); Urine Leukocyte 1+ (Negative); Urine Nitrite Negative (Negative); Urine Occult Blood Negative (Negative); Urine Urobilinogen 1+ (Neg - 1+)
[2024-10-30 13:24] LABS: Urine Mucus Moderate; Urine Squamous Cell 0-2 /LPF (Few)
[2024-10-30 13:25] LABS: Urine Bacteria Few (Negative)
[2024-10-30 13:39] LABS: Amphetamines Negative (Negative); Barbiturates Negative (Negative); Benzodiazepines Positive (Negative); Buprenorphine Negative (Negative); Cocaine Negative (Negative); Marijuana Negative (Negative); Methadone Negative (Negative); Methamphetamines Negative (Negative); Opiates Negative (Negative); Phencyclidine Negative (Negative); Tricyclic Antidepressants Negative (Negative)
[2024-10-30 14:01] LABS: Fentanyl, Urine Negative (Negative)
[2024-10-30] MEDS: LOVENOX 40 MG SC (17:25)
--- NOTE | 2024-10-30 18:12 | PTCARENOTE ---
pt transfer from 2S. pt AAO*3, Vss, room air. on tele NSR. pt denies any pain at this time. pt oriented to the room. call winston within the reach.
[2024-10-31 03:00] VITALS: BP 109/73
[2024-10-31 07:30] VITALS: BP 106/79
[2024-10-31] MEDS: THIAMINE INJECTION 200 MG IV (09:22)
[2024-10-31] MEDS: FOLVITE 1 MG PO (09:22)
[2024-10-31 09:23] LABS: Hematocrit 35.1 % (39.0-52.0); Hemoglobin 12.6 g/dL (13.0-18.0); Mean Corp Hgb Conc. 35.9 g/dL (33.0-37.0); Mean Corpuscular Hgb 33.1 pg (27.0-31.0); Mean Corpuscular Volume 92.1 fL (80.0-94.0); Mean Platelet Volume 10.3 fL (7.4-10.4); Platelet Count 147 10^3/uL (130-400); Red Blood Cell Count 3.81 10^6/uL (4.70-6.10); Red Cell Dist. Width 12.5 % (11.5-14.5); White Blood Cell Count 8.7 10^3/uL (4.8-10.8)
--- NOTE | 2024-10-31 09:40 | W.PN.HOSP.TC ---
Today's Communication/Plan
-
d/c
Assessment / Plan
Assessment / Plan
Gen: NAD, AAOx3.
Eyes: EOMI, PERRLA, no scleral icterus.
Neck: supple.
CV: remains RRR, +S1/S2, no m/r/g.
Resp: remains CTAB, no rales, wheezes, or rhonchi.
Abd: remains +BS, soft, NT, ND
Skin: No rashes.
Neuro: CN 2-12 intact, non-focal.
Psych: Normal mood and affect.
CXR: No acute cardiopulmonary abnormality.
CTA chest: No evidence of central pulmonary embolism. Bibasilar subsegmental atelectasis.
Alcohol abuse disorder:
-drinks approximately 10 ounces vodka per day, last drink 10/28/24
-cont MSAS protocol (thiamine/folate/PRN ativan)
-Currently without any evidence of alcohol withdrawal
Chest pain and shortness of breath:
-Patient states this is what brought him to the hospital
-Trop < 0.012 x 2
-ECG (read by me): sinus tachy @ 118, nl axis, intervals, no acute ST/TW changes
-CTA chest without PE
Hypomagnesemia:
-resolved s/p 4g IV Mg
Hypokalemia:
-40meq PO and 40meq IV K prior to d/c
Leukocytosis, likely reactive, resolved
FULL/SCDs
Medically cleared for discharge.
Total time spent on d/c = 33 min. This included today's physical exam, progress note, review of laboratory and diagnostic data, preparation of discharge documents and prescriptions, and discussions about the pt's hospital course and discharge plan
with the patient and other certified medical transcriptionist involved in the patient's care.
Anticipated Discharge: Today
Subjective/Interval History
-
Date of Service: October 31, 2024
Denies chest pain, shortness of breath, auditory visual hallucinations, tremor, diaphoresis.
Objective Data
-
Labs:
Laboratory Results
10/31/24
07:43
WBC 8.7
Hgb 12.6 L
Hct 35.1 L
Plt Count 147 D
Sodium Pending
Potassium Pending
Chloride Pending
Carbon Dioxide Pending
BUN Pending
Creatinine Pending
Glucose Pending
Calcium Pending
Total Bilirubin Pending
AST Pending
ALT Pending
Alkaline Phosphatase Pending
Vital Signs:
Vital Signs
Temp Pulse Resp BP Pulse Ox
98.2 F 75 16 106/79 97
10/31/24 07:30 10/31/24 07:30 10/31/24 07:30 10/31/24 07:30 10/31/24 07:30
I&O
10/30/24 10/31/24 11/01/24
06:59 06:59 06:59
Intake Total 120 / 120 100 / 100
Balance 120 / 120 100 / 100
[2024-10-31 09:42] LABS: ALT (SGPT) 14 U/L (0-50); AST (SGOT) 28 U/L (17-59); Albumin 3.9 g/dl (3.5-5.0); Alkaline Phosphatase 68 U/L (38-126); Blood Urea Nitrogen 10 mg/dl (9-20); Calcium 8.6 mg/dl (8.4-10.2); Carbon Dioxide 28 mmol/L (22-30); Chloride 101 mmol/L (98-107); Estimated Creatinine Clearance > 125 ml/min; Glucose 98 mg/dl (70-99); Potassium 3.2 mmol/L (3.5-5.1); Sodium 135 mmol/L (135-145); Total Bilirubin 1.4 mg/dl (0.2-1.3); Total Protein 6.4 g/dl (6.3-8.2); eGFR > 60.00
[2024-10-31 10:07] LABS: Magnesium 2.2 mg/dl (1.6-2.3)
[2024-10-31 11:08] VITALS: BP 114/78
[2024-10-31] MEDS: KCL 40 MEQ PO (11:13)
[2024-10-31] MEDS: KCL 270 MEQ IV (11:14)
--- NOTE | 2024-10-31 11:15 | CM ---
Received notification that patient is cleared for discharge. Spoke with patient who confirmed that he spoke with Jimi from [facility] and he will be going to [facility] in [place] for treatment., Patient expressed that he will work out billing plan as he
is self pay. Patient stated that his house is right next to and he would like to walk home. Patient encouraged to discuss this with RN and that if this is not a safe plan, transportation can be worked out. Patient expressed appreciation.
Plan: Case management will continue to follow and assist with discharge planning. Home with outpatient rehab at [facility].
[2024-10-31] MEDS: AFLURIA (36 mos+) 2024-2025 FORMULA 0.5 ML IM (11:46)
--- NOTE | 2024-10-31 13:54 | W.DCSUMMARY ---
Discharge Summary
Discharge Data
Date of Admission: 10/29/24
Date of Discharge: 10/31/24
-
Pending Results: No
Hospital Course
Primary diagnoses:
Alcohol use disorder
Chest pain
Shortness of breath
Hypomagnesemia
Hypokalemia
Secondary diagnoses:
Leukocytosis, likely reactive
Consultants:
None
Imaging:
CXR: No acute cardiopulmonary abnormality.
CTA chest: No evidence of central pulmonary embolism. Bibasilar subsegmental atelectasis.
59-year-old male who presented with chief complaints of tremors, chest pain, shortness of breath as outlined in the H&P done on admission. Hospital course by problem was:
Alcohol abuse disorder: The patient drinks approximately 10 ounces vodka per day, last drink 10/28/24. He was placed on the MSAS protocol (thiamine/folate/PRN ativan). He had no active withdrawal while hospitalized. He is being discharged on
thiamine and folate. He was counseled on alcohol cessation.
Chest pain and shortness of breath: On October 30, 2024 the patient stated to me that chest pain and shortness of breath were what brought him to the hospital. He had 2 negative troponins. ECG (read by me): sinus tachy @ 118, nl axis, intervals, no
acute ST/TW changes. Patient had a CT angiogram of the chest without any evidence of pulmonary embolism. His symptoms resolved prior to discharge. He was discharged in medically stable condition
Discharge Plan
-
Patient Disposition: Home (Routine Discharge)
Discharge Diagnosis/Procedures: Alcohol use disorder, chest pain, shortness of breath
Condition: Good
Diet: No restrictions
Activity: No restrictions
Driving Restrictions: As prior to admission
Blood Work: BMP, CBC, magnesium in 1 week, prescription from PCP
Referrals:
Sandro Howard DO [Family Provider] - in less than 1 week
Prescriptions:
New
folic acid 1 mg Tablet
1 mg PO DAILY Qty: 0 0RF
thiamine HCl (vitamin B1) 100 mg capsule
100 mg PO DAILY Qty: 30 0RF
Discontinued
acetaminophen [Tylenol Extra Strength] 500 mg tablet
1,000 mg PO Q6HPRN PRN (Reason: mild pain) Qty: 1 0RF
Discharge Orders:
Discharge Patient (As Directed); Ordered 10/31/24
Ordered By: Robert Middleton
Discharge Date and Time
Print Language: ALBANIAN
[2024-10-31 15:13] VITALS: BP 112/66
== END 2024-10-31 16:19 | disposition home or self-care (01) | DRG 897 ==
LOC: 4 EAST ACU 08:02
PROVIDERS: Nurse Practitioner Family; ADMITTING PHYSICIAN Internal Medicine; ATTENDING PHYSICIAN Internal Medicine; EMERGENCY PHYSICIAN Emergency Medicine; FAMILY PHYSICIAN Family Medicine
PROC: 3E02340 Introduction of Influenza Vaccine into Muscle, Percutaneous Approach (ICD-10-PCS; 2024-10-31)
DX: F10.10 Alcohol abuse, uncomplicated (principal); R07.9 Chest pain, unspecified; F41.9 Anxiety disorder, unspecified; F17.210 Nicotine dependence, cigarettes, uncomplicated; Z82.5 Family history of asthma and other chronic lower respiratory diseases; Z80.8 Family history of malignant neoplasm of other organs or systems; E83.42 Hypomagnesemia; E87.6 Hypokalemia; D72.829 Elevated white blood cell count, unspecified; R06.02 Shortness of breath; Z23 Encounter for immunization; R00.0 Tachycardia, unspecified; R25.1 Tremor, unspecified; R20.2 Paresthesia of skin
CPT/HCPCS: 71046; 71275; 80053; 80306; 80307; 81003; 81015; 82010; 82077; 82977; 83735; 84100; 84484; 85025; 85027; 85610; 85730; 90686; 93005; 96361; 96374; 96375; 99285; G0008; Q9967

== ENCOUNTER 2025-02-10 17:34 | Emergency (ER) | payer SELFPAY ==
[2025-02-10 17:39] VITALS: BP 117/82
--- NOTE | 2025-02-10 17:52 | ED.GENMED ---
History of Present Illness
General
Chief Complaint: Fatigue
Source: patient
Exam Limitations: none
Time Seen by Provider: 02/10/25 17:48
History of Present Illness
History of Present Illness:
See MDM
Past History
Past History
ED Past Medical History: Other (Chronic alcoholic)
ED Past Surgical History: Appendectomy
Social History
Tobacco: Smoker
Alcohol: Binge drinker
Drug: None
Personal:
Living: with family
Employment: Not employed
Family History
Family History: Other (Brain tumor); Negative Early CAD
Phy Exam
Physical Exam
Physical Exam:
See MDM
Course
Orders/Labs/Results
Orders:
Orders
02/10/25 18:30
CPK [Creatine Phosphokinase] Urgent
Complete Blood Count/With Diff Urgent
Comprehensive Metabolic Panel Urgent
Manual Differential Urgent
Abnormal Lab Results
02/10/25
18:30
RBC 4.15 L 10^6/uL
(4.70-6.10)
Hct 38.1 L %
(39.0-52.0)
MCH 33.0 H pg
(27.0-31.0)
Chloride 111 H mmol/L
(98-107)
Calcium 8.3 L mg/dl
(8.4-10.2)
02/10/25 18:30
02/10/25 18:30
Vital Signs
Initial and Last Documented VS:
Initial Vital Signs
Temp Pulse Resp BP Pulse Ox
98.1 F 89 16 117/82 95
02/10/25 17:39 02/10/25 17:39 02/10/25 17:39 02/10/25 17:39 02/10/25 17:39
Last Documented Vital Signs
Temp Pulse Resp BP Pulse Ox
98.1 F 79 18 126/89 99
02/10/25 17:39 02/11/25 04:00 02/11/25 04:00 02/10/25 20:00 02/11/25 04:00
MDM/Problems Addressed
Differential Diagnosis Includes:
HPI and MDM Narrative:
59-year-old male presenting for evaluation of alcohol intoxication. Patient was lying on the grass outside and bystanders called police. Per EMS, he blew a 0.45 on the breathalyzer. Patient offers no complaint. He is sleepy but awake and alert.
Patient states he was drinking a lot of vodka today and states he is an alcoholic. At the moment, patient is interested in speaking to an alcohol counselor but is currently too intoxicated. IV fluids started by EMS. No trauma noted on exam
Physical exam
General: Lying in bed comfortably. Intoxicated. Answering questions appropriately
HEENT: protecting airway no trauma noted
Neck: appears supple
CV: No evidence of cyanosis. Regular rate and rhythm
Resp: No accessory muscle use. Lungs clear
Abd: Non-distended
Extremities: No deformities
Neuro: alert
Psych: Normal affect
Skin: Intact
Problems Addressed including Acute and Chronic Conditions affecting care:
1. Alcohol intoxication
Acuity: acute
Prognosis: stable
Details: Will continue to monitor in the emergency department.
Updates
10:20 PM patient awake and alert and eating. Patient requesting [facility] evaluation. Will have them evaluate
Differential Diagnosis (but not limited to): Alcohol use disorder, alcohol intoxication
Testing considered: CT head but no trauma noted
Drug therapy (if applicable): OTC meds, please see d/c instruction regarding Rx drugs
Amount and/or Complexity of Data Reviewed
Clinical info obtained from: Patient
External data reviewed: N/A
Labs I independently reviewed (but not limited to): Sodium level normal
Radiology: N/A
Pulse Ox: not hypoxic
EKG independently reviewed: N/A
Sash Maker: N/A
Critical Care: N/A
Risk of Complication:
Social Determinants of health: Good social support
Discussed with other providers: N/A
Escalation of Care includes Admit/Obs: [facility] will evaluate for outpatient disposition
Occasional wrong word or 'sound a like' substitutions may have occurred due to the inherent limitations of voice recognition software. Read the chart carefully and recognize, using context, where substitutions have occurred.
*Pulse Oximetry
SaO2: 95
Oxygen Mode of Delivery: Room air
Patient hypoxic: no
*Critical Care Note
Total Time (30-74mins, 75-104mins- exclusive of procedures): Not Applicable
ED Attending Note
-
Portions of this chart may have been created with voice recognition software.� Occasional wrong word or��sound alike� substitutions may have occurred due to the inherent limitations of voice recognition software.
Discharge Plan
Departure
Patient Disposition: Other
Date of Disposition: 02/10/25
Time of Disposition: 22:24
Patient with high blood pressure during this ER visit?: No
Discharge Problem:
Alcohol use disorder
Instructions: Alcohol use disorder - ED discharge instructions
Prescriptions:
No Action
folic acid 1 mg Tablet
1 mg PO DAILY Qty: 0 0RF
thiamine HCl (vitamin B1) 100 mg capsule
100 mg PO DAILY Qty: 30 0RF
Referrals:
Sandro Howard DO [Family Provider, Family Practice]
Activity Restrictions/Additional Instructions:
Please return for any worsening symptoms.
You may return at any time if you have further concerns.
Please follow up with your doctor at the first available appointment, preferably this week.
Interventions
Interventions:
*Risk Screen - Suicide Last Done: 02/10/25 17:39
*General Assessment Last Done: 02/10/25 18:21
*Neglect/Abuse Screening Last Done: 02/10/25 17:39
*ED- Fall Risk Assessment Last Done: 02/10/25 18:21
*ED COVID-19 Vaccine History Last Done: 02/10/25 18:21
Discharge Date and Time
Print Language: SYRIAC
[2025-02-10 18:50] LABS: Hematocrit 38.1 % (39.0-52.0); Hemoglobin 13.7 g/dL (13.0-18.0); Mean Corp Hgb Conc. 36.0 g/dL (33.0-37.0); Mean Corpuscular Volume 91.8 fL (80.0-94.0); Platelet Count 155 10^3/uL (130-400); Red Cell Dist. Width 12.2 % (11.5-14.5)
[2025-02-10 18:56] LABS: ALT (SGPT) 17 U/L (0-50); AST (SGOT) 28 U/L (17-59); Albumin 4.5 g/dl (3.5-5.0); Alkaline Phosphatase 60 U/L (38-126); Blood Urea Nitrogen 13 mg/dl (9-20); Calcium 8.3 mg/dl (8.4-10.2); Carbon Dioxide 24 mmol/L (22-30); Chloride 111 mmol/L (98-107); Glucose 96 mg/dl (70-99); Potassium 3.9 mmol/L (3.5-5.1); Sodium 145 mmol/L (135-145); Total Protein 7.1 g/dl (6.3-8.2); eGFR > 60.00
[2025-02-10 19:00] VITALS: BP 121/87
[2025-02-10 19:11] LABS: Absolute Neutrophils -Man Diff 2.5 10^3/uL (1.4-6.5); Normal RBC Morphology Yes; Platelets Checked Yes; Total Cells Counted 100
[2025-02-10 20:00] VITALS: BP 126/89
== END 2025-02-11 09:50 | disposition other institution (70) ==
LOC: EMR 17:34
PROVIDERS: EMERGENCY PHYSICIAN Student in an Organized Health Care Education/Training Program; FAMILY PHYSICIAN Family Medicine
DX: F10.229 Alcohol dependence with intoxication, unspecified (principal); F17.200 Nicotine dependence, unspecified, uncomplicated
CPT/HCPCS: 99283; 80053; 82550; 85025

== ENCOUNTER 2025-02-11 20:31 | Emergency (ER) | payer SELFPAY ==
[2025-02-11 20:36] VITALS: BP 126/83
[2025-02-11 21:13] VITALS: BMI 24.0
--- NOTE | 2025-02-11 21:21 | ED.GENMED ---
History of Present Illness
General
Chief Complaint: Crisis Evaluation
Time Seen by Provider: 02/11/25 21:21
History of Present Illness
History of Present Illness:
TIME OF INITIAL EVALUATION
- 9:30 PM
REVIEW OF OLD RECORDS
- I reviewed records, the patient was seen here yesterday with alcohol related complaints. The patient was admitted to the hospital in October with alcohol withdrawal kind of symptoms.
Note:
CHIEF COMPLAINT(S)
Alcohol use and depression.
HISTORY OF PRESENT ILLNESS
The patient is a 59-year-old male who presents with concerns regarding his alcohol use and feelings of depression. He reported being in the emergency room last night, during which he left without informing the staff. The patient described being
'really trashed' and explained that he left after being disconnected from all medical apparatus around 10 PM. Today, the patient admitted to consuming approximately five small bottles of alcohol and expressed feeling very depressed. He mentioned a
fleeting thought of self-harm but denied any current intention or plan to harm himself. The patient has undergone rehabilitation for alcohol dependence twice, the last time being five to six years ago at a facility in [place]. However, he expressed
financial constraints, stating he cannot afford further inpatient rehabilitation.
ADDITIONAL HISTORY OBTAINED FROM SOURCES OTHER THAN THE PATIENT
According to the biscuit factory worker, the patient is receiving information about resources for behavioral health support.
SOCIAL DETERMINANTS AFFECTING HEALTH
The patient reported financial constraints impacting his ability to afford inpatient rehabilitation. He mentioned his last rehabilitation cost $50,000, which was partly covered by insurance at the time, but he no longer has the means to afford such
treatment.
REVIEW OF SYSTEMS
- Psychological: Reports of depression and fleeting thoughts of self-harm, but denies current suicidal intent or plan.
PHYSICAL EXAM
General: Alert, no acute distress.
Skin: Warm, dry.
Head: Normocephalic, atraumatic.
Neck: Supple, trachea midline.
Eye Ears, nose, mouth, and throat: Oral mucosa moist.
Cardiovascular: Normal peripheral perfusion, no edema.
Respiratory: Respirations are non-labored.
Gastrointestinal: Abdomen nondistended.
Back: Normal range of motion, normal alignment.
Musculoskeletal: Normal range of motion, normal strength.
Neurological: Alert and oriented to person, place, time, and situation. No focal neurological deficit observed.
Psychiatric: Cooperative, appropriate mood & affect, patient does not appear to be intoxicated.
PLAN
The patient was evaluated by the crisis team and provided with resources concerning behavioral health support. Discharge paperwork is being prepared to allow the patient to leave the facility. Emphasis is placed on ensuring the patient has access to
crisis resources and information for ongoing support.
DIFFERENTIAL DIAGNOSIS
The Differential Diagnosis includes, in no particular order and is not limited to:
1. Alcohol Use Disorder
2. Major Depressive Disorder
3. Alcohol-Induced Depressive Disorder
4. Adjustment Disorder
5. Bipolar Disorder
6. Anxiety Disorder
7. Substance Abuse
8. Post-Traumatic Stress Disorder
9. Personality Disorder
10. Schizophrenia
RADIOLOGY
-
EKG
-
LABS
-
UPDATE
- I spoke to crisis who is giving the patient outpatient behavioral health resources including resources for drug and alcohol use. The patient did not want to be placed at a facility.
SUMMARY OF ENCOUNTER
The patient, a 59-year-old male, was seen in the emergency department due to concerns regarding alcohol use and feelings of depression. He had visited the emergency room previously but left without notifying the staff. Upon evaluation, he was
provided with resources for behavioral health support, including assistance for alcohol use. The patient acknowledged fleeting thoughts of self-harm but denied any current suicidal intent or plan. He felt stable enough to walk home and did not
appear clinically intoxicated at the time of evaluation.
DISPOSITION
Discharge.
PLAN
Resources for behavioral health and support for alcohol use were provided to the patient by the crisis team. Emphasis was placed on ensuring the patient has access to crisis resources and information for ongoing support to address his alcohol use
and depressive symptoms.
PATIENT EDUCATION AND COUNSELING
The patient received counseling about available resources for behavioral health support and assistance for alcohol use. He was educated on the importance of reaching out for help if suicidal thoughts recur.
MEDICAL DECISION MAKING
-Complexity of Data Reviewed: Chronic conditions affecting care include alcohol use disorder and major depressive disorder. Differential diagnosis includes alcohol use disorder, major depressive disorder, alcohol-induced depressive disorder,
adjustment disorder, bipolar disorder, anxiety disorder, substance abuse, post-traumatic stress disorder, personality disorder, and schizophrenia.
-Data:
Category 2: Clinical information was obtained from the crisis team.
-Risk: Consideration of Admission/Observation: Escalation of care, including admission/observation, was considered given the complexity and risk of the patients presenting complaint, exam findings, and underlying comorbidities. However, I feel the
patient is safe for outpatient management with close follow up. Reasoning: Work-up reassuring, does not reveal any acute life/organ-threatening processes, patients symptoms are well controlled upon reevaluation, reexamination is reassuring, vitals
are stable, patient agreeable with discharge, reliable for follow-up.
Care significantly affected by Social Determinants of Health: Financial constraints impacting the ability to afford inpatient rehabilitation.
DIAGNOSIS
- Alcohol Use Disorder (ICD-10: F10.20)
- Major Depressive Disorder, Single Episode, Unspecified (ICD-10: F32.9)
Past History
Past History
ED Past Medical History: Other (Chronic alcoholic)
ED Past Surgical History: Appendectomy
Social History
Tobacco: Smoker
Alcohol: Binge drinker
Drug: None
Personal:
Living: with family
Employment: Not employed
Family History
Family History: Other (Brain tumor); Negative Early CAD
Phy Exam
Physical Exam
Physical Exam:
See HPI
Course
Orders/Labs/Results
Orders:
Orders
02/11/25 20:40
1:1 Observation - Suicide/ Violent Behavior As Directed
Crisis Consult Urgent
Reason for Consult: SI
Vital Signs
Initial and Last Documented VS:
Initial Vital Signs
Temp Pulse Resp BP Pulse Ox
36.9 C 83 16 126/83 98
02/11/25 20:36 02/11/25 20:36 02/11/25 20:36 02/11/25 20:36 02/11/25 20:36
Last Documented Vital Signs
Temp Pulse Resp BP Pulse Ox
36.9 C 83 16 126/83 98
02/11/25 20:36 02/11/25 20:36 02/11/25 20:36 02/11/25 20:36 02/11/25 21:25
*Pulse Oximetry
SaO2: 98
Oxygen Mode of Delivery: Room air
Patient hypoxic: no
*Critical Care Note
Total Time (30-74mins, 75-104mins- exclusive of procedures): Not Applicable
ED Attending Note
-
Portions of this chart may have been created with voice recognition software.� Occasional wrong word or��sound alike� substitutions may have occurred due to the inherent limitations of voice recognition software.
Discharge Plan
Departure
Patient Disposition: Home (Routine Discharge)
Date of Disposition: 02/11/25
Time of Disposition: 21:47
Patient with high blood pressure during this ER visit?: Yes
Discharge Problem:
Depression
Instructions: Depression, Adult (DC), BLOOD PRESSURE
Prescriptions:
No Action
No Current Medications
0
Activity Restrictions/Additional Instructions:
Follow-up with the resources as given to you by the biscuit factory worker annette. Return here if worse or other concerns especially if these thoughts recur.
Interventions
Interventions:
*Risk Screen - Suicide Last Done: 02/11/25 20:36
*General Assessment Last Done: 02/11/25 20:36
*Neglect/Abuse Screening Last Done: 02/11/25 20:36
ED-Psychological Assessment Last Done: 02/11/25 21:16
Discharge Date and Time
Print Language: BURMESE
== END 2025-02-11 22:40 | disposition home or self-care (01) ==
LOC: EMR 20:31
PROVIDERS: EMERGENCY PHYSICIAN Emergency Medicine
DX: F32.9 Major depressive disorder, single episode, unspecified (principal); F17.200 Nicotine dependence, unspecified, uncomplicated; F10.10 Alcohol abuse, uncomplicated; Z59.86 Financial insecurity; R03.0 Elevated blood-pressure reading, without diagnosis of hypertension
CPT/HCPCS: 99285

== ENCOUNTER 2025-02-14 09:52 | Emergency (ER) | payer SELFPAY ==
[2025-02-14] VITALS (8 sets, daily range): BP systolic 119–144; BP diastolic 83–118
--- NOTE | 2025-02-14 10:10 | ED.GENMED ---
History of Present Illness
General
Chief Complaint: Alcohol Problem
Source: patient
Exam Limitations: none
Time Seen by Provider: 02/14/25 10:01
Nursing documentation reviewed up to this point in time: agreed with
History of Present Illness
History of Present Illness:
59-year-old male presents emergency department due to suicidal ideation, remarks he posted on Facebook. He stated he did not want to be here anymore. He has been drinking alcohol frequently. He last drank sometime last night.
Past History
Past History
ED Past Medical History: Other (Chronic alcoholic)
ED Past Surgical History: Appendectomy
Social History
Tobacco: Smoker
Alcohol: Binge drinker
Drug: None
Personal:
Living: with family
Employment: Not employed
Family History
Family History: Other (Brain tumor); Negative Early CAD
Review of Systems
Review of Systems
Allergies reviewed?: Yes
All Other Systems: Not applicable
Constitutional: Reports no symptoms
EENT: Reports no symptoms
Respiratory: Reports no symptoms
Cardiac: Reports no symptoms
ABD/GI: Reports no symptoms
: Reports no symptoms
Musculoskeletal: Reports no symptoms
Skin: Reports no symptoms
Neurological: Reports no symptoms
Endocrine: Reports no symptoms
Hematologic/Lymphatic: Reports no symptoms
Psychiatric: Reports depression and suicidal
Phy Exam
Physical Exam
Physical Exam:
Physical Exam
General: no apparent distress, not acutely ill
Neck: supple. no meningeal signs. normal posterior pharynx
Heart: s1/s2 regular rate and rhythm, no murmur. equal radial
pulses.
HEENT: Pupils equal round reactive to light, EOMI
Lungs: no acute respiratory distress. clear bilaterally
Abdomen: normal bowel sounds. not tender. no CVAT
Neuro: alert and oriented. no focal neurological deficits cranial nerves II through XII intact
Skin: no rash
Psychiatric: well kept. interactive and cooperative
Extremities: no edema. no calf tenderness. negative homans. good distal pulses
Scores
Withdrawal Assessment of Alcohol
Withdrawal Assessment Completed?: Yes
Nausea and Vomiting: No nausea and no vomiting
Tactile Disturbances: None
Tremor: No tremor
Auditory Disturbances: Not present
Paroxysmal Sweats: No sweat visible
Visual Disturbances: Not present
Anxiety: Mild anxiety
Headache, Fullness in Head: Not present
Agitation: Normal activity
Orientation and clouding of sensorium: Oriented and can do serial additions
Total CIWA Score: 1
Alcohol Withdrawal Medication Recommendation: Equal to MSAS Score 0-4. Monitor & re-assess q2hrs, NO MEDICATION NEEDED
Course
Orders/Labs/Results
Orders:
Orders
02/14/25 10:08
IV Insert/Care/Rem.- Treatment PRN
02/14/25 10:09
Acetaminophen Urgent
Alcohol Urgent
Complete Blood Count/With Diff Urgent
Comprehensive Metabolic Panel Urgent
Salicylate Urgent
02/14/25 10:11
Urine Drug Abuse Screen Urgent
Date Specimen was Collected: 02/14/25
Time Specimen was Collected: 10:10
02/14/25 12:25
Crisis Consult Urgent
Reason for Consult: suicidal ideation
Abnormal Lab Results
02/14/25
10:09
RBC 4.41 L 10^6/uL
(4.70-6.10)
MCH 32.7 H pg
(27.0-31.0)
Carbon Dioxide 20 L mmol/L
(22-30)
Glucose 142 H mg/dl
(70-99)
Total Bilirubin 1.8 H mg/dl
(0.2-1.3)
Salicylates < 1.0 L mg/dl
(2.0-20.0)
Acetaminophen < 10 L ug/ml
(10-30)
02/14/25 10:09
02/14/25 10:09
Vital Signs
Initial and Last Documented VS:
Initial Vital Signs
Temp Pulse Resp BP Pulse Ox
98.1 F 125 16 119/83 98
02/14/25 09:54 02/14/25 09:54 02/14/25 09:54 02/14/25 09:54 02/14/25 09:54
Last Documented Vital Signs
Temp Pulse Resp BP Pulse Ox
98.1 F 72 16 132/118 99
02/14/25 09:54 02/14/25 15:00 02/14/25 15:00 02/14/25 15:00 02/14/25 15:00
MDM/Problems Addressed
Differential Diagnosis Includes:
Alcohol withdrawal, suicidal ideation
MDM/Problems Addressed:
59-year-old male with suicidal ideation. Will send to [facility] for further treatment. No signs of alcohol withdrawal.
*Pulse Oximetry
SaO2: 98
Oxygen Mode of Delivery: Room air
Patient hypoxic: no
*Critical Care Note
Total Time (30-74mins, 75-104mins- exclusive of procedures): Not Applicable
Patient Management
Social determinants of health affecting care: Living situation, Substance abuse and Strong social support
Discussion with other providers: Other (crisis staff)
Escalation/DeEscalation of care consider admission/obs:
transfer to psych facility indicated
ED Attending Note
-
Portions of this chart may have been created with voice recognition software.� Occasional wrong word or��sound alike� substitutions may have occurred due to the inherent limitations of voice recognition software.
Discharge Plan
Departure
Patient Disposition: Psych Facility
Date of Disposition: 02/14/25
Time of Disposition: 15:46
Patient Status:: Psych
Condition: Good
Discharge Problem:
Suicidal ideation
Prescriptions:
No Action
No Current Medications
0
Referrals:
UNKNOWN - PT NOT,INTERVIEWE [Family Provider]
Interventions
Interventions:
*Risk Screen - Suicide Last Done: 02/14/25 09:54
*General Assessment Last Done: 02/14/25 10:02
*Neglect/Abuse Screening Last Done: 02/14/25 09:54
ED- Neurological Assessment Last Done: 02/14/25 10:03
ED-Psychological Assessment Last Done: 02/14/25 10:14
Discharge Date and Time
Print Language: BENGALI
[2025-02-14 10:42] LABS: Hematocrit 39.8 % (39.0-52.0); Hemoglobin 14.4 g/dL (13.0-18.0); Mean Corp Hgb Conc. 36.2 g/dL (33.0-37.0); Mean Corpuscular Volume 90.2 fL (80.0-94.0); Nucleated Red Blood Cells % 0 % (-); Platelet Count 170 10^3/uL (130-400); Red Cell Dist. Width 12.0 % (11.5-14.5)
[2025-02-14 10:50] LABS: ALT (SGPT) 22 U/L (0-50); AST (SGOT) 36 U/L (17-59); Albumin 5.0 g/dl (3.5-5.0); Alkaline Phosphatase 98 U/L (38-126); Blood Urea Nitrogen 13 mg/dl (9-20); Calcium 10.1 mg/dl (8.4-10.2); Carbon Dioxide 20 mmol/L (22-30); Chloride 104 mmol/L (98-107); Estimated Creatinine Clearance 109 ml/min; Glucose 142 mg/dl (70-99); Potassium 3.7 mmol/L (3.5-5.1); Sodium 137 mmol/L (135-145); Total Protein 7.7 g/dl (6.3-8.2); eGFR > 60.00
[2025-02-14 11:43] LABS: Acetaminophen < 10 ug/ml (10-30); Salicylate < 1.0 mg/dl (2.0-20.0)
== END 2025-02-14 19:25 ==
LOC: EMR 09:52
PROVIDERS: EMERGENCY PHYSICIAN Emergency Medicine
DX: R45.851 Suicidal ideations (principal); F10.20 Alcohol dependence, uncomplicated; F32.A Depression, unspecified; F17.210 Nicotine dependence, cigarettes, uncomplicated
CPT/HCPCS: 99285; 80053; 80143; 80179; 80306; 82077; 85025

== ENCOUNTER 2025-04-03 17:04 | Emergency (ER) | payer SELFPAY ==
[2025-04-03 17:10] VITALS: BP 123/86
[2025-04-03 17:43] LABS: Hematocrit 38.7 % (39.0-52.0); Hemoglobin 14.1 g/dL (13.0-18.0); Mean Corp Hgb Conc. 36.4 g/dL (33.0-37.0); Mean Corpuscular Volume 90.2 fL (80.0-94.0); Nucleated Red Blood Cells % 0 % (-); Platelet Count 148 10^3/uL (130-400); Red Cell Dist. Width 12.1 % (11.5-14.5)
[2025-04-03 17:52] LABS: ALT (SGPT) 32 U/L (0-50); AST (SGOT) 54 U/L (17-59); Albumin 5.3 g/dl (3.5-5.0); Alkaline Phosphatase 111 U/L (38-126); Blood Urea Nitrogen 10 mg/dl (9-20); Calcium 10.0 mg/dl (8.4-10.2); Carbon Dioxide 20 mmol/L (22-30); Chloride 99 mmol/L (98-107); Glucose 144 mg/dl (70-99); Potassium 3.4 mmol/L (3.5-5.1); Sodium 132 mmol/L (135-145); Total Protein 8.5 g/dl (6.3-8.2); eGFR > 60.00
--- NOTE | 2025-04-03 18:05 | ED.GENMED ---
History of Present Illness
General
Chief Complaint: Alcohol Problem
Source: patient and records
Exam Limitations: none
Time Seen by Provider: 04/03/25 17:38
Nursing documentation reviewed up to this point in time: agreed with
History of Present Illness
History of Present Illness:
59-year-old male alcoholic drinks 10 airplane bottles of vodka a day for to rehab 2-3 times previously is not interested in rehab said no alcohol today feels anxious dizzy and nauseous no other drugs not able to work due to his alcoholism,
Past History
Past History
ED Past Medical History: Other (Chronic alcoholic)
ED Past Surgical History: Appendectomy
Social History
Tobacco: Smoker
Alcohol: Binge drinker
Drug: None
Personal:
Living: with family
Employment: Not employed
Family History
Family History: Other (Brain tumor); Negative Early CAD
Phy Exam
Physical Exam
Physical Exam:
Physical Exam
General: Disheveled cooperative male
Neck: Lips are slightly dry
Heart: s1/s2 regular rate and rhythm, no murmur. equal radial pulses.
Lungs: no acute respiratory distress. clear bilaterally
Abdomen: Nontender
Neuro: alert and oriented. Slightly tremulous oriented able to do serial additions
Skin: no rash
Psychiatric: Disheveled cooperative not suicidal homicidal
Extremities: no edema. no calf tenderness. negative homans. good distal pulses
Scores
Withdrawal Assessment of Alcohol
Withdrawal Assessment Completed?: Yes
Nausea and Vomiting: Mild nausea with no vomiting
Tactile Disturbances: Very mild itching, pins and needles, burning or numbness
Tremor: Moderate, with patient's arms extended
Auditory Disturbances: Not present
Paroxysmal Sweats: No sweat visible
Visual Disturbances: Not present
Anxiety: Mild anxiety
Headache, Fullness in Head: Not present
Agitation: Moderately fidgety and restless
Orientation and clouding of sensorium: Oriented and can do serial additions
Total CIWA Score: 11
Alcohol Withdrawal Medication Recommendation: Equal to MSAS Score 5-7. Lorazepam 1mg IV or PO NOW & re-assess q2hrs
Course
Orders/Labs/Results
Orders:
Orders
04/03/25 17:15
Electrocardiogram (*1) Urgent
Reason for Study: Fatigue / Weakness
EKG- Treatment ONCE
04/03/25 17:29
Alcohol Urgent
Complete Blood Count/With Diff Urgent
Comprehensive Metabolic Panel Urgent
04/03/25 17:57
diazePAM [Valium Injection] 10 mg IV NOW STA
04/03/25 19:00
0.9% Sodium Chloride 1000 ml [Nss] 1,000 ml Mvi, Adult [Multivitamin] 10 ml Thiamine Injection 100 mg Magnesium Sulfate 2 grams IV 1,000 mls/hr
Abnormal Lab Results
04/03/25
17:29
RBC 4.29 L 10^6/uL
(4.70-6.10)
Hct 38.7 L %
(39.0-52.0)
MCH 32.9 H pg
(27.0-31.0)
Absolute Neuts (auto) 6.8 H 10^3/uL
(1.4-6.5)
Absolute Lymphs (auto) 0.7 L 10^3/uL
(1.2-3.4)
Neutrophils % 84.7 H %
(42.2-75.2)
Lymphocytes % 9.1 L %
(20.5-51.1)
Sodium 132 L mmol/L
(135-145)
Potassium 3.4 L mmol/L
(3.5-5.1)
Carbon Dioxide 20 L mmol/L
(22-30)
Creatinine 0.6 L mg/dL
(0.7-1.3)
Glucose 144 H mg/dl
(70-99)
Total Bilirubin 3.7 H mg/dl
(0.2-1.3)
Total Protein 8.5 H g/dl
(6.3-8.2)
Albumin 5.3 H g/dl
(3.5-5.0)
04/03/25 17:29
04/03/25 17:29
Vital Signs
Initial and Last Documented VS:
Initial Vital Signs
Temp Pulse Resp BP Pulse Ox
98.1 F 110 22 123/86 100
04/03/25 17:10 04/03/25 17:10 04/03/25 17:10 04/03/25 17:10 04/03/25 17:10
Last Documented Vital Signs
Temp Pulse Resp BP Pulse Ox
98.1 F 91 19 123/87 98
04/03/25 17:10 04/03/25 20:00 04/03/25 20:00 04/03/25 20:00 04/03/25 20:00
MDM/Problems Addressed
Differential Diagnosis Includes:
Alcohol withdrawal, agitation, anxiety, no signs of DTs at this point
MDM/Problems Addressed:
Alcoholism
Chronic conditions affecting care:
Alcohol
Acute Exacerbation and/or Progression of Chronic Illness:
Alcohol
*Pulse Oximetry
SaO2: 100
Oxygen Mode of Delivery: Room air
Patient hypoxic: no
*EKG
Interpreted by ED Provider?: Yes
Interpretation: normal
Comparison EKG: no comparison EKG present
Heart Rate: 78
Rate: normal
Rhythm: sinus
Ischemia: no ischemia
*Riveter Interpretation
Rate: normal
Interpretation: normal
Heart Rate: 78
Rhythm: sinus
*Critical Care Note
Total Time (30-74mins, 75-104mins- exclusive of procedures): Not Applicable
Update Note
Update Note:
Update labs noted, patient mild to moderate withdrawal he is not interested in rehab now is not suicidal, try to get him comfortable fluids replete his electrolytes as needed dose of benzodiazepines will asked him again if he has any interest in
rehab
Update again patient not interested in rehab tolerating p.o. fluids
ED Attending Note
-
Portions of this chart may have been created with voice recognition software.� Occasional wrong word or��sound alike� substitutions may have occurred due to the inherent limitations of voice recognition software.
Discharge Plan
Departure
Patient Disposition: Home (Routine Discharge)
Date of Disposition: 04/03/25
Time of Disposition: 19:27
Patient with high blood pressure during this ER visit?: Yes
Condition: Good
Covid-19: Not Applicable
Discharge Problem:
Alcohol withdrawal
Instructions: Alcohol Withdrawal (DC)
Prescriptions:
New
oxazepam 10 mg capsule
10 mg PO TID PRN (Reason: withdrawal) Qty: 10 0RF
Referrals:
Sandro Howard DO [Family Provider, Family Practice] - Next open appointment
Stand Alone Forms: Return to Work
Interventions
Interventions:
*Risk Screen - Suicide Last Done: 04/03/25 17:14
*Neglect/Abuse Screening Last Done: 04/03/25 17:14
ED- Neurological Assessment Last Done: 04/03/25 18:42
ED-Psychological Assessment Last Done: 04/03/25 18:42
Discharge Date and Time
Print Language: CHINESE
[2025-04-03 18:20] VITALS: BP 121/82
[2025-04-03] MEDS: MULTIVITAMIN 1015 GRAMS IV (18:36)
[2025-04-03] MEDS: MULTIVITAMIN 1015 ML IV (18:36)
[2025-04-03] MEDS: MULTIVITAMIN 1015 MG IV (18:36)
[2025-04-03] MEDS: VALIUM INJECTION 10 MG IV (18:37)
[2025-04-03 19:00] VITALS: BP 119/86
[2025-04-03 20:00] VITALS: BP 123/87
== END 2025-04-03 20:54 | disposition home or self-care (01) ==
LOC: EMR 17:04
PROVIDERS: Emergency Medicine; EMERGENCY PHYSICIAN Emergency Medicine; FAMILY PHYSICIAN Family Medicine
DX: F10.239 Alcohol dependence with withdrawal, unspecified (principal); Y90.9 Presence of alcohol in blood, level not specified; F17.200 Nicotine dependence, unspecified, uncomplicated
CPT/HCPCS: 96365; 96375; 99284; 80053; 82077; 85025; 93005

== ENCOUNTER 2025-05-05 07:18 | Emergency (ER) | payer SELFPAY ==
[2025-05-05 07:29] VITALS: BP 156/110
[2025-05-05] MEDS: NSS 1000 IV (07:52)
[2025-05-05 07:53] VITALS: BMI 22.6
[2025-05-05 08:21] LABS: ALT (SGPT) 17 U/L (0-50); AST (SGOT) 32 U/L (17-59); Albumin 4.9 g/dl (3.5-5.0); Alkaline Phosphatase 102 U/L (38-126); Blood Urea Nitrogen 10 mg/dl (9-20); Calcium 8.8 mg/dl (8.4-10.2); Carbon Dioxide 22 mmol/L (22-30); Chloride 101 mmol/L (98-107); Estimated Creatinine Clearance > 125 ml/min; Glucose 128 mg/dl (70-99); Lipase 111 U/L (23-300); Potassium 3.5 mmol/L (3.5-5.1); Sodium 136 mmol/L (135-145); Total Protein 7.7 g/dl (6.3-8.2); eGFR > 60.00
[2025-05-05 08:36] LABS: Hematocrit 37.6 % (39.0-52.0); Hemoglobin 13.7 g/dL (13.0-18.0); Mean Corp Hgb Conc. 36.4 g/dL (33.0-37.0); Mean Corpuscular Volume 89.3 fL (80.0-94.0); Platelet Count 134 10^3/uL (130-400); Red Cell Dist. Width 12.8 % (11.5-14.5)
[2025-05-05 08:37] LABS: Nucleated Red Blood Cells % 0 % (-)
[2025-05-05] MEDS: VALIUM INJECTION 5 MG IV (08:45)
[2025-05-05 08:47] VITALS: BP 122/83
[2025-05-05 10:07] VITALS: BP 128/90
[2025-05-05] MEDS: VALIUM INJECTION 2.5 MG IV (11:12)
--- NOTE | 2025-05-05 12:55 | ED.GENMED ---
History of Present Illness
General
Chief Complaint: Alcohol Problem
Source: patient
Time Seen by Provider: 05/05/25 07:39
History of Present Illness
History of Present Illness:
Note:
CHIEF COMPLAINT(S)
Alcohol withdrawal symptoms
HISTORY OF PRESENT ILLNESS
The patient is a 59-year-old male with a history of chronic alcohol use, presenting with symptoms indicative of alcohol withdrawal. The patient reports a long-standing history of alcohol consumption, starting in his teenage years, with the most
recent excessive intake being until yesterday afternoon. He typically consumes approximately ten 'airplane bottles' of vodka daily and begins drinking as soon as the liquor store opens.
The patient describes experiencing tremors, stating, 'Look at me now,' indicating visible shakiness. He reports dry heaving and a poor appetite, which may suggest alcohol-induced ketoacidosis due to inadequate nutritional intake. This is the third
visit to the hospital in the past four months for similar issues.
The patient expresses feelings of helplessness and concern about his health, fearing that he might '.' He acknowledges the need to stop drinking and mentions previous successes in achieving sobriety for over a year. However, he is currently
unemployed due to absenteeism related to his drinking, worsening his situation.
PAST MEDICAL AND SURGICAL HISTORY
The patient mentions multiple prior rehabilitation attempts, including a recent rehab stay focusing on psychiatric care. He has a documented history of legal issues related to alcohol, with five DUI offenses, but reports no car accidents. Previous
rehabilitation at [facility] when he was nearly 53 is noted.
CHRONIC MEDICAL CONDITIONS SIGNIFICANTLY AFFECTING CARE
Chronic alcohol use disorder
SOCIAL DETERMINANTS AFFECTING HEALTH
The patient reports a history of unemployment due to absenteeism associated with alcohol use. He also expressed the impact of boredom on his relapses.
REVIEW OF SYSTEMS
- Skin: Pylorection noted
- Gastrointestinal: Dry heaving, poor appetite noted
- Neurological: Tremors, described as feeling shaky
PHYSICAL EXAM
General: Tremulous, alert, no acute distress.
Skin: Pale, pylorection present.
Cardiovascular: Regular tachycardia, hypertensive with blood pressure at 137/94 mmHg.
Respiratory: Respirations are non-labored.
Neurological: Tremulous, awake, and alert.
Psychiatric: Appropriate mood and affect.
PROBLEM LIST
Acute:
- Alcohol withdrawal
- Tremors
- Hypertension
- Tachycardia
- Dry heaving
Chronic:
- Alcohol use disorder
PLAN
1. Initiate fluid therapy to address potential dehydration and electrolyte imbalance.
2. Administer pharmacologic agents to manage acute alcohol withdrawal symptoms, stabilize vitals, and reduce tremors.
3. Provide nutritional support to address potential alcohol-related ketoacidosis.
4. Discuss and provide resources for long-term alcohol addiction treatment options, including rehabilitation and support groups.
DIFFERENTIAL DIAGNOSIS
The Differential Diagnosis includes, in no particular order and is not limited to:
- Alcohol withdrawal syndrome
- Delirium tremens
- Alcoholic ketoacidosis
- Acute pancreatitis
- Hypertensive crisis secondary to alcohol withdrawal
- Tachyarrhythmias secondary to withdrawal
- Gastroenteritis
- Viral gastroenteritis
- Anxiety disorder
- Essential tremor
EKG
My independent EKG interpretation is:
- Time of EKG: Not specified
- Rhythm: Sinus rhythm
- Heart Rate: 106 bpm
- Intervals: Normal MD interval, QRS duration, and QT interval
- [place]: Normal
- Abnormalities: No acute ischemic changes, non-specific ST-T wave changes.
CARE-UPDATE
05/05/25 - 10:53
The patient reports feeling somewhat better but expresses anxiety and concerns about affording rehab due to a lack of insurance. The patients heart and blood pressure have improved, and lab results are normal, indicating better overall stability.
The current plan involves a discussion with the [facility] to explore any outpatient treatment options. The patient is advised not to consume alcohol and is offered a tapering dose of Valium for home use. The medication dosage may be adjusted to
prevent excessive sedation, as the patient reported feeling overly sleepy. The patient is encouraged to eat in moderation. Further assessment from [facility] is pending to determine discharge and treatment planning.
Disposition:
SUMMARY OF ENCOUNTER
The patient, a 59-year-old male with a history of chronic alcohol use, presented to the emergency department with symptoms of alcohol withdrawal, including tremors, hypertension, tachycardia, and dry heaving. The patient reported frequent alcohol
consumption until the previous day. In the emergency department, the patient was administered fluids and medications to manage withdrawal symptoms, resulting in an improvement in vital signs and resolution of tremors. The patient was also evaluated
by addiction specialists for potential rehabilitation placement.
DISPOSITION
Discharge
ASSESSMENT
The patient is experiencing alcohol withdrawal, as indicated by his symptoms of tremors, high blood pressure, and elevated heart rate. His condition improved following treatment, and he is considered stable for discharge with a rehabilitation plan
in place.
PLAN
1. Continue outpatient management for alcohol withdrawal symptoms.
2. Encourage rehabilitation for chronic alcohol use disorder.
3. Complete referral to addiction specialists for ongoing support and resources.
4. Monitor for any recurrence of withdrawal symptoms.
5. Offer tapering dose of diazepam (Valium) for management of symptoms as needed.
INDEPENDENT REVIEW OF LABS AND INTERPRETATION OF TESTS
- My independent review of CBC is normal.
- My independent review of CMP is normal.
- My independent EKG interpretation indicates a sinus rhythm with a heart rate of 106 bpm, normal intervals, and no acute ischemic changes.
PATIENT EDUCATION AND COUNSELING
Discussed with the patient the importance of abstaining from alcohol and the benefits of rehabilitation and support groups for long-term sobriety. Emphasized the adverse effects of alcohol on health and the risk of withdrawal symptoms.
FOLLOW-UP INSTRUCTIONS
Please call the office immediately to schedule a follow-up visit with your primary care physician to ensure the continuation of appropriate treatment and monitoring.
MEDICATION RECONCILIATION
Prescribed a tapering dose of diazepam (Valium) for home use to manage withdrawal symptoms as needed. The dosage may be adjusted to prevent excessive sedation.
MEDICAL DECISION MAKING
1. Number and Complexity of Problems Addressed: Chronic conditions affecting care include alcohol use disorder. Differential diagnosis includes alcohol withdrawal syndrome, delirium tremens, alcoholic ketoacidosis, acute pancreatitis, and
hypertensive crisis secondary to alcohol withdrawal.
2. Data:
- Category 1: My independent review of CBC, CMP, and EKG was completed.
- Category 3: Discussion of management with addiction specialists regarding rehabilitation planning for the patient.
3. Risk: Consideration of Admission/Observation: Escalation of care including admission/observation was considered given the complexity and risk of the patients presenting complaint, exam findings, and underlying comorbidities. However, ultimately I
feel the patient is safe for outpatient management with close follow up. Reasoning: Work-up reassuring, does not reveal any acute life/organ threatening processes, patients symptoms well controlled upon reevaluation, reexamination is reassuring,
vitals are stable, patient agreeable with discharge, reliable for follow-up.
DIAGNOSIS
- Alcohol withdrawal syndrome (ICD-10: F10.239)
- Chronic alcohol use disorder (ICD-10: F10.20)
Patient remained stable and will be transferred to rehab around 315
Past History
Past History
ED Past Medical History: Other (Chronic alcoholic)
ED Past Surgical History: Appendectomy
Social History
Tobacco: Smoker
Alcohol: Binge drinker
Drug: None
Personal:
Living: with family
Employment: Not employed
Family History
Family History: Other (Brain tumor); Negative Early CAD
Phy Exam
Physical Exam
Physical Exam:
.
Scores
Withdrawal Assessment of Alcohol
Withdrawal Assessment Completed?: Yes
Nausea and Vomiting: Intermittent nausea with dry heaves
Tactile Disturbances: Very mild itching, pins and needles, burning or numbness
Tremor: Severe, even with arms not extended
Auditory Disturbances: Not present
Paroxysmal Sweats: No sweat visible
Visual Disturbances: Not present
Anxiety: Moderately anxious, or guarded, so anxiety is inferred
Headache, Fullness in Head: Very mild
Agitation: Moderately fidgety and restless
Orientation and clouding of sensorium: Oriented and can do serial additions
Total CIWA Score: 21
Alcohol Withdrawal Medication Recommendation: Equal to MSAS >11. Lorazepam 2-4mg IV NOW and re-assess q1hr
Course
Orders/Labs/Results
Orders:
Orders
05/05/25 07:32
Electrocardiogram (*1) Urgent
Reason for Study: Bradycardia / Tachycardia
EKG- Treatment ONCE
05/05/25 07:40
0.9% Sodium Chloride 1000 ml [Nss] 1,000 ml IV BOLUS
05/05/25 07:50
Complete Blood Count/With Diff Urgent
Comprehensive Metabolic Panel Urgent
Lipase Urgent
05/05/25 08:29
diazePAM [Valium Injection] 5 mg IV NOW STA
05/05/25 11:03
diazePAM [Valium Injection] 2.5 mg IV NOW STA
05/05/25 14:32
Diazepam [Valium] 5 mg PO NOW STA
Abnormal Lab Results
05/05/25
07:50
RBC 4.21 L 10^6/uL
(4.70-6.10)
Hct 37.6 L %
(39.0-52.0)
MCH 32.5 H pg
(27.0-31.0)
Creatinine 0.6 L mg/dL
(0.7-1.3)
Glucose 128 H mg/dl
(70-99)
05/05/25 07:50
05/05/25 07:50
Vital Signs
Initial and Last Documented VS:
Initial Vital Signs
Temp Pulse Resp BP Pulse Ox
98.3 F 144 18 156/110 98
05/05/25 07:29 05/05/25 07:29 05/05/25 07:29 05/05/25 07:29 05/05/25 07:29
Last Documented Vital Signs
Temp Pulse Resp BP Pulse Ox
98.6 F 94 18 139/92 98
05/05/25 14:00 05/05/25 14:00 05/05/25 13:00 05/05/25 13:00 05/05/25 13:00
*Pulse Oximetry
SaO2: 96
Oxygen Mode of Delivery: Room air
Patient hypoxic: no
*Critical Care Note
Total Time (30-74mins, 75-104mins- exclusive of procedures): Not Applicable
ED Attending Note
-
Portions of this chart may have been created with voice recognition software.� Occasional wrong word or��sound alike� substitutions may have occurred due to the inherent limitations of voice recognition software.
Discharge Plan
Departure
Patient Disposition: Acute Rehab Facility
Date of Disposition: 05/05/25
Time of Disposition: 12:56
Discharge Problem:
Acute alcohol withdrawal, Alcoholism
Prescriptions:
No Action
oxazepam 10 mg capsule
10 mg PO TID PRN (Reason: withdrawal) Qty: 10 0RF
Referrals:
Sandro Howard DO [Family Provider, Family Practice]
Interventions
Interventions:
*Risk Screen - Suicide Last Done: 05/05/25 07:31
*General Assessment Last Done: 05/05/25 07:55
*Neglect/Abuse Screening Last Done: 05/05/25 07:31
*ED- Fall Risk Assessment Last Done: 05/05/25 07:54
*ED COVID-19 Vaccine History Last Done: 05/05/25 07:54
*ED Influenza Vaccine History Last Done: 05/05/25 07:54
ED- Neurological Assessment Last Done: 05/05/25 07:57
ED-Psychological Assessment Last Done: 05/05/25 08:01
Discharge Date and Time
Print Language: YORUBA
[2025-05-05 13:00] VITALS: BP 139/92
[2025-05-05] MEDS: VALIUM 5 MG PO (14:41)
== END 2025-05-05 15:10 ==
LOC: EMR 07:18
PROVIDERS: EMERGENCY PHYSICIAN Emergency Medicine; FAMILY PHYSICIAN Family Medicine
DX: F10.239 Alcohol dependence with withdrawal, unspecified (principal); F17.200 Nicotine dependence, unspecified, uncomplicated; Z56.0 Unemployment, unspecified; Z59.71 Insufficient health insurance coverage
CPT/HCPCS: 99284; 96374; 96376; 96361; 80053; 83690; 85025; 93005

== ENCOUNTER 2025-06-17 12:52 | Emergency (ER) | payer OTHER, SELFPAY ==
[2025-06-17 12:55] VITALS: BP 140/97
[2025-06-17] MEDS: ZOFRAN 4 MG IV (17:02)
[2025-06-17] MEDS: ATIVAN 1 MG PO (17:02)
[2025-06-17] MEDS: NSS 1000 IV (17:03)
--- NOTE | 2025-06-17 17:11 | ED.GENMED ---
History of Present Illness
General
Chief Complaint: Alcohol Problem
Source: patient
Exam Limitations: none
Time Seen by Provider: 06/17/25 13:26
Nursing documentation reviewed up to this point in time: agreed with
History of Present Illness
History of Present Illness:
59-year-old male presenting to the emergency department today with concerns of alcohol withdrawal. Does have a history of DTs is looking for inpatient. Last drink was last night claims to have 15 vodka drinks per day over the past week.
Past History
Past History
ED Past Medical History: Other (Chronic alcoholic)
ED Past Surgical History: Appendectomy
Social History
Tobacco: Smoker
Alcohol: Binge drinker
Drug: None
Personal:
Living: with family
Employment: Not employed
Family History
Family History: Other (Brain tumor); Negative Early CAD
Review of Systems
Review of Systems
Allergies reviewed?: Yes
All Other Systems: ROS reviewed and negative except as documented in HPI and ROS
Phy Exam
Physical Exam
Physical Exam:
GENERAL: Alert , in no apparent distress
EYE: pupils equal and reactive
NECK: Supple, no significant adenopathy.
ENT: o/p clr, mmm.
CARDIAC: Regular rate and rhythm .
LUNGS: Clear breath sounds bilaterally, no acute respiratory distress, no wheezes/rales/rhonchi
ABDOMEN: Soft, without focal tenderness, no r/g, no cvat
NEUROLOGICAL: Alert and oriented, slight tremor with hands with hands extended, no focal neuro deficits
SKIN: Warm and dry, skin intact.
MUSCULOSKELETAL: No edema, well perfused.
PSYCH: Normal and appropriate interaction.
Scores
Withdrawal Assessment of Alcohol
Withdrawal Assessment Completed?: Yes
Nausea and Vomiting: No nausea and no vomiting
Tactile Disturbances: None
Tremor: Moderate, with patient's arms extended
Auditory Disturbances: Not present
Paroxysmal Sweats: No sweat visible
Visual Disturbances: Not present
Anxiety: Mild anxiety
Headache, Fullness in Head: Very mild
Agitation: Normal activity
Orientation and clouding of sensorium: Oriented and can do serial additions
Total CIWA Score: 6
Alcohol Withdrawal Medication Recommendation: Equal to MSAS Score 0-4. Monitor & re-assess q2hrs, NO MEDICATION NEEDED
Course
Orders/Labs/Results
Orders:
Orders
06/17/25 16:22
0.9% Sodium Chloride 1000 ml [Nss] 1,000 ml IV BOLUS
Lorazepam [Ativan] 1 mg PO NOW STA
Ondansetron Injectable [Zofran] 4 mg IV NOW STA
06/17/25 17:04
CBC/With Diff [Complete Blood Count/With Diff] Urgent
CMP [Comprehensive Metabolic Panel] Urgent
06/17/25 17:20
Vital Signs- Treatment ONCE
Frequency: Once
Abnormal Lab Results
06/17/25
17:04
RBC 4.55 L 10^6/uL
(4.70-6.10)
MCH 31.4 H pg
(27.0-31.0)
Absolute Neuts (auto) 8.4 H 10^3/uL
(1.4-6.5)
Neutrophils % 78.3 H %
(42.2-75.2)
Lymphocytes % 15.6 L %
(20.5-51.1)
Potassium 3.4 L mmol/L
(3.5-5.1)
Carbon Dioxide 21 L mmol/L
(22-30)
Glucose 110 H mg/dl
(70-99)
Total Bilirubin 3.0 H mg/dl
(0.2-1.3)
06/17/25 17:04
06/17/25 17:04
Vital Signs
Initial and Last Documented VS:
Initial Vital Signs
Temp Pulse Resp BP Pulse Ox
98.2 F 118 16 140/97 97
06/17/25 12:55 06/17/25 12:55 06/17/25 12:55 06/17/25 12:55 06/17/25 12:55
Last Documented Vital Signs
Temp Pulse Resp BP Pulse Ox
98.7 F 89 18 131/86 98
06/17/25 17:33 06/17/25 17:33 06/17/25 17:33 06/17/25 17:33 06/17/25 17:33
MDM/Problems Addressed
MDM/Problems Addressed:
59-year-old male presenting to the emergency department today seeking inpatient alcohol rehab. Claims to have what he claims is early withdrawal symptoms. Last drink was last night claims that 15 vodka drinks per day over the past week previously
came out of alcohol rehab a month and a half ago and did not drink up until 1 week ago. Does have a long history of alcohol abuse. Stable throughout ER stay was admitted directly to [facility] stable at time of discharge will go directly
there. Return precautions given.
*Pulse Oximetry
SaO2: 97
Oxygen Mode of Delivery: Room air
Patient hypoxic: no (98)
*Critical Care Note
Total Time (30-74mins, 75-104mins- exclusive of procedures): Not Applicable
ED Attending Note
-
Portions of this chart may have been created with voice recognition software.� Occasional wrong word or��sound alike� substitutions may have occurred due to the inherent limitations of voice recognition software.
Discharge Plan
Departure
Patient Disposition: Acute Rehab Facility
Patient with high blood pressure during this ER visit?: No
Condition: Good
Covid-19: Not Applicable
Discharge Problem:
Alcohol withdrawal
Prescriptions:
No Action
oxazepam 10 mg capsule
10 mg PO TID PRN (Reason: withdrawal) Qty: 10 0RF
Referrals:
Odette Patterson MD [Family Provider, Internal Medicine]
Interventions
Interventions:
*Risk Screen - Suicide Last Done: 06/17/25 12:56
*General Assessment Last Done: 06/17/25 16:41
*Neglect/Abuse Screening Last Done: 06/17/25 12:56
*ED- Fall Risk Assessment Last Done: 06/17/25 16:41
*ED COVID-19 Vaccine History Last Done: 06/17/25 16:42
*ED Influenza Vaccine History Last Done: 06/17/25 16:42
*Nursing Disposition Last Done: 06/17/25 18:54
ED- Neurological Assessment Last Done: 06/17/25 16:40
ED-Psychological Assessment Last Done: 06/17/25 16:40
Discharge Date and Time
Discharge Date/Time: 06/17/25 18:55
Print Language: ERITREAN
[2025-06-17 17:19] LABS: Hematocrit 40.5 % (39.0-52.0); Hemoglobin 14.3 g/dL (13.0-18.0); Mean Corp Hgb Conc. 35.3 g/dL (33.0-37.0); Mean Corpuscular Volume 89.0 fL (80.0-94.0); Nucleated Red Blood Cells % 0 % (-); Platelet Count 236 10^3/uL (130-400); Red Cell Dist. Width 12.1 % (11.5-14.5)
[2025-06-17 17:31] LABS: ALT (SGPT) 20 U/L (0-50); AST (SGOT) 30 U/L (17-59); Albumin 5.0 g/dl (3.5-5.0); Alkaline Phosphatase 95 U/L (38-126); Blood Urea Nitrogen 12 mg/dl (9-20); Calcium 9.7 mg/dl (8.4-10.2); Carbon Dioxide 21 mmol/L (22-30); Chloride 101 mmol/L (98-107); Glucose 110 mg/dl (70-99); Potassium 3.4 mmol/L (3.5-5.1); Sodium 135 mmol/L (135-145); Total Protein 7.9 g/dl (6.3-8.2); eGFR > 60.00
[2025-06-17 17:33] VITALS: BP 131/86
[2025-06-17 18:11] VITALS: BMI 23.7
== END 2025-06-17 18:55 ==
LOC: EMR 12:52
PROVIDERS: Physician Assistant; EMERGENCY PHYSICIAN Emergency Medicine; FAMILY PHYSICIAN Emergency Medicine
DX: F10.239 Alcohol dependence with withdrawal, unspecified (principal); F17.200 Nicotine dependence, unspecified, uncomplicated
CPT/HCPCS: 99285; 96374; 96361; 80053; 85025

== ENCOUNTER 2025-07-15 09:09 | Emergency (ER) | payer OTHER, SELFPAY ==
[2025-07-15 09:11] VITALS: BP 138/103
[2025-07-15 09:22] VITALS: BP 133/93
--- NOTE | 2025-07-15 09:24 | ED.GENMED ---
History of Present Illness
General
Chief Complaint: Withdrawal Symptoms
Source: patient
Exam Limitations: none
Time Seen by Provider: 07/15/25 09:14
History of Present Illness
History of Present Illness:
59yoM with history of alcohol abuse and tobacco use presenting for evaluation of alcohol withdrawal. Patient typically drinks 1/5 of vodka daily. Last drink was last night. He recently got out of [facility] about a week ago and was
requesting to go back. He is symptomatic with anxiety and tremors. He is also experiencing shortness of breath which he has had with withdrawal previously but this seems worse. He was sick a few weeks ago and continues to have a lingering cough.
No chest pain. No history of withdrawal seizures.
Past History
Past History
ED Past Medical History: Other (Chronic alcoholic)
ED Past Surgical History: Appendectomy
Social History
Tobacco: Smoker
Alcohol: Binge drinker
Drug: None
Personal:
Living: with family
Employment: Not employed
Family History
Family History: Other (Brain tumor); Negative Early CAD
Phy Exam
Physical Exam
Physical Exam:
Tremulous, anxious
General Physical Exam
General Presentation: mild distress
General Skin: warm and dry
General Habitus: normal
General Mental: alert
ENT Exam
ENT Exam: normocephalic
Cardiovascular Exam
Cardiovascular Exam: tachycardia
Pulmonary Exam
Pulmonary Exam: lungs clear, no respiratory distress, no rales, no crackles, no rhonchi and no wheezing
Neurological Exam
Neurological Exam: alert and other (+Upper extremity tremors)
Jamieson Coma Scale
Eye Opening: Spontaneous
Verbal Response: Oriented
Motor Response: Obeys Commands
GCS Total Score: 15
Skin Exam
Skin Exam: normal color and warm/dry
Psychiatric Exam
Psychiatric Exam: normal mood/affect
Course
Orders/Labs/Results
Orders:
Orders
07/15/25 09:21
Electrocardiogram (*1) Urgent
Reason for Study: Shortness of Breath
Cardiac Monitoring- Treatment ONCE
EKG- Treatment ONCE
0.9% Sodium Chloride 1000 ml [Nss] 1,000 ml IV BOLUS
Lorazepam [Ativan] 1 mg IV NOW STA
07/15/25 09:22
CR Chest - 2 Views Urgent
Comment:
Reason For Exam: SOB
07/15/25 09:41
Complete Blood Count/With Diff Urgent
Comprehensive Metabolic Panel Urgent
D-Dimer Urgent
Magnesium Urgent
Troponin I Urgent
07/15/25 10:02
Magnesium Sulfate 2 Gram/50 ml [Magnesium Sulfate] 2 gram in 50 ml IV NOW
Potassium Chloride [KCl] 40 meq PO NOW STA
diazePAM [Valium Injection] 5 mg IV NOW STA
07/15/25 10:14
0.9% Sodium Chloride 1000 ml [Nss] 1,000 ml IV BOLUS
Abnormal Lab Results
07/15/25
09:41
WBC 11.4 H 10^3/uL
(4.8-10.8)
RBC 4.56 L 10^6/uL
(4.70-6.10)
Hct 38.1 L %
(39.0-52.0)
Abs Immat Gran (auto) 0.1 H 10^3/uL
(0-0.05)
Absolute Neuts (auto) 8.4 H 10^3/uL
(1.4-6.5)
Absolute Monos (auto) 0.8 H 10^3/uL
(0.1-0.6)
Lymphocytes % 18.8 L %
(20.5-51.1)
Sodium 134 L mmol/L
(135-145)
Potassium 3.3 L mmol/L
(3.5-5.1)
Carbon Dioxide 15 L mmol/L
(22-30)
Glucose 164 H mg/dl
(70-99)
Magnesium 1.4 L mg/dl
(1.6-2.3)
Total Bilirubin 2.4 H mg/dl
(0.2-1.3)
07/15/25 09:41
07/15/25 09:41
Vital Signs
Initial and Last Documented VS:
Initial Vital Signs
Temp Pulse Resp BP Pulse Ox
97.9 F 145 26 138/103 99
07/15/25 09:11 07/15/25 09:11 07/15/25 09:11 07/15/25 09:11 07/15/25 09:11
Last Documented Vital Signs
Temp Pulse Resp BP Pulse Ox
97.9 F 110 20 133/91 99
07/15/25 09:11 07/15/25 11:15 07/15/25 11:15 07/15/25 11:00 07/15/25 11:15
MDM/Problems Addressed
Differential Diagnosis Includes:
59yoM here with alcohol withdrawal. Last drink yesterday evening. C/o tremors, anxiety, and SOB. HR 145 in triage although HR in the 110s on initial exam. Patient with diffuse tremors. Lungs CTA and oxygen saturation 99%. Differential diagnosis
includes: Alcohol withdrawal, ACS, PE, dehydration
Initial ED plan: Check cardiac labs, D-dimer, magnesium, EKG, and CXR. 1mg IV Ativan and fluid bolus ordered for symptoms. Will discuss with [facility].
*Pulse Oximetry
SaO2: 99
Oxygen Mode of Delivery: Room air
Patient hypoxic: no
*EKG
Interpreted by ED Provider?: Yes
EKG Intrepretation Date: 07/15/25
Heart Rate: 113
Rate: tachycardiac
Rhythm: sinus
[place]: normal axis
Interval: normal interval
QRS Pattern: normal QRS
Ischemia: non-specific ST changes
*Critical Care Note
Total Time (30-74mins, 75-104mins- exclusive of procedures): Not Applicable
Update Note
Update Note:
Labs reveal a potassium of 3.3 and magnesium 1.4 which were both replaced. Bicarb low at 15 and additional fluid bolus ordered. Troponin undetectable and D-dimer normal making PE very unlikely. Chest x-ray clear. Patient ultimately accepted at
[facility]. Patient will be transported directly to detox facility for further treatment. He was discharged in stable condition.
ED Attending Note
-
Portions of this chart may have been created with voice recognition software.� Occasional wrong word or��sound alike� substitutions may have occurred due to the inherent limitations of voice recognition software.
Discharge Plan
Departure
Patient Disposition: Home (Routine Discharge)
Date of Disposition: 07/15/25
Time of Disposition: 11:09
Patient with high blood pressure during this ER visit?: No
Discharge Problem:
Alcohol withdrawal
Instructions: Alcohol Withdrawal (DC)
Prescriptions:
No Action
oxazepam 10 mg capsule
10 mg PO TID PRN (Reason: withdrawal) Qty: 10 0RF
Referrals:
NONE,* [Family Provider, Internal Medicine]
Activity Restrictions/Additional Instructions:
Jeremias is medically cleared for further treatment at [facility].
Interventions
Interventions:
*Risk Screen - Suicide Last Done: 07/15/25 09:11
*General Assessment Last Done: 07/15/25 09:11
*Neglect/Abuse Screening Last Done: 07/15/25 09:11
[facility] Risk Assessment Tool Last Done: 07/15/25 09:53
ED- Neurological Assessment Last Done: 07/15/25 10:00
ED-Psychological Assessment Last Done: 07/15/25 10:00
Discharge Date and Time
Print Language: SRI LANKAN
[2025-07-15 09:31] VITALS: BMI 24.5
[2025-07-15] MEDS: NSS 1000 IV (09:39)
[2025-07-15] MEDS: ATIVAN 1 MG IV (09:39)
[2025-07-15 09:48] LABS: Hematocrit 38.1 % (39.0-52.0); Hemoglobin 13.9 g/dL (13.0-18.0); Mean Corp Hgb Conc. 36.5 g/dL (33.0-37.0); Mean Corpuscular Volume 83.6 fL (80.0-94.0); Nucleated Red Blood Cells % 0 % (-); Platelet Count 230 10^3/uL (130-400); Red Cell Dist. Width 12.4 % (11.5-14.5)
[2025-07-15 10:00] LABS: D-Dimer 0.44 ug/mlFEU (0.00-0.50)
[2025-07-15 10:01] LABS: ALT (SGPT) 24 U/L (0-50); AST (SGOT) 33 U/L (17-59); Albumin 4.7 g/dl (3.5-5.0); Alkaline Phosphatase 116 U/L (38-126); Blood Urea Nitrogen 11 mg/dl (9-20); Calcium 9.1 mg/dl (8.4-10.2); Carbon Dioxide 15 mmol/L (22-30); Chloride 101 mmol/L (98-107); Estimated Creatinine Clearance 113 ml/min; Glucose 164 mg/dl (70-99); Magnesium 1.4 mg/dl (1.6-2.3); Potassium 3.3 mmol/L (3.5-5.1); Sodium 134 mmol/L (135-145); Total Protein 7.6 g/dl (6.3-8.2); eGFR > 60.00
[2025-07-15] MEDS: KCL 40 MEQ PO (10:10)
[2025-07-15] MEDS: MAGNESIUM SULFATE 50 IV (10:10)
[2025-07-15] MEDS: VALIUM INJECTION 5 MG IV (10:10)
[2025-07-15 10:12] LABS: Troponin I < 0.012 ng/ml
[2025-07-15 11:00] VITALS: BP 133/91
== END 2025-07-15 11:45 ==
LOC: EMR 09:09
PROVIDERS: Physician Assistant; EMERGENCY PHYSICIAN Emergency Medicine
DX: F10.239 Alcohol dependence with withdrawal, unspecified (principal); F17.200 Nicotine dependence, unspecified, uncomplicated
CPT/HCPCS: 99285; 96374; 96375 ×2; 96361; 71046; 80053; 83735; 84484; 85025; 85379; 93005